=== PATIENT | female | born 1960 | race Caucasian/White ===

== ENCOUNTER 2024-03-22 10:32 | Emergency (ER) | payer MEDICARE ==
--- NOTE | 2024-03-22 10:38 | ERPHSYRPT ---
- History of Present Illness Time Seen by Provider: 03/22/24 10:38 Source: patient, family Exam Limitations: no limitations Physician History: This is a 63-year-old white female patient of Dr. Coe who arrives by private vehicle escorted by her spouse secondary to achiness in bilateral upper extremities right greater than left for the last few days intermittently. Last night to today the pain became more persistent and constant. Her symptoms began 03/20/2024. Patient did not tell the nurse who was triaging her that she actually has had episodes of chest pain. The chest pain was substernal central without radiation it was significant enough for her to consider coming to the emergency department last evening but she did not. Patient also states that it has been at least a week since she has been off of her supplemental potassium. Patient had to travel to see her daughter and the potassium upsets her stomach and so she stopped this medication. Patient has a history of Renee's esophagus and occasionally has chest pain but this pain that she describes in the last few days is different. Patient has a history of anxiety, depression, hypertension, hypothyroidism, hyperlipidemia and gastroesophageal reflux disease. Patient has not suffered any trauma fall or injury to her bilateral upper extremities Occurred: yesterday Quality: aching Severity of Pain-Max: moderate Severity of Pain-Current: moderate Extremities Pain Location: shoulder: bilateral, arm: bilateral Modifying Factors: Improves With: movement Associated Symptoms: chest discomfort (Mentally over the last 2 to 3 days) Allergies/Adverse Reactions: Penicillins Adverse Reaction (Verified 03/22/24 11:23) Hives Sulfa (Sulfonamide Antibiotics) Adverse Reaction (Verified 03/22/24 11:23) Hives Home Medications: ALPRAZolam 0.25 MG [xanAX 0.25 MG] 0.25 mg PO DAILY 03/22/24 [History] Atorvastatin Calcium 20 mg PO DAILY 03/22/24 [History] Hydrochlorothiazide 25 mg [hydroDIURIL 25 MG] 25 mg PO DAILY 03/22/24 [History] Levothyroxine Sodium 100 Mcg [Synthroid 100 Mcg] 100 mcg PO DAILY 03/22/24 [History] PANTOPRAZOLE 40 mg Tablet [Protonix 40MG Tablet] 40 mg PO DAILY 03/22/24 [History] Paroxetine HCl 20 mg [Paxil 20 MG] 10 mg PO DAILY 03/22/24 [History] Potassium Chloride 10 mg PO DAILY 03/22/24 [History] Sucralfate 1 gm [Carafate 1 GM] 1 g PO DAILY 03/22/24 [History] Verapamil HCl [Verapamil Sr] 180 mg PO DAILY 03/22/24 [History] Travel Risk - International Travel Have you traveled outside of the country in past 3 weeks: No - Emerging Infectious Disease Are you exhibiting symptoms associated with any current EIDs: No - Review of Systems Constitutional: No Symptoms Eyes: No Symptoms Ears, Nose, & Throat: No Symptoms Respiratory: No Symptoms Cardiac: Chest Pain Abdominal/Gastrointestinal: No Symptoms Genitourinary Symptoms: No Symptoms Musculoskeletal: No Symptoms, No Injury Skin: No Symptoms Neurological: No Symptoms Psychological: No Symptoms Endocrine: No Symptoms Hematologic/Lymphatic: No Symptoms Immunological/Allergic: No Symptoms All Other Systems: Reviewed and Negative - Past Medical History Pertinent Past Medical History: Yes - Past Surgical History Past Surgical History: Yes - Nursing Vital Signs Nursing Vital Signs: Initial Vital Signs Temperature 97.9 F 03/22/24 11:08 Pulse Rate 75 03/22/24 11:08 Respiratory Rate 18 03/22/24 11:08 Blood Pressure 159/107 03/22/24 11:08 O2 Sat by Pulse Oximetry 97 03/22/24 11:08 Pain Scale Pain Intensity 6 - Physical Exam General Appearance: no apparent distress, alert, anxiety, thin Eyes, Ears, Nose, Throat Exam: normal ENT inspection, moist mucous membranes Neck Exam: normal inspection, non-tender, supple, full range of motion Cardiovascular/Respiratory Exam: chest non-tender, normal breath sounds, regular rate/rhythm, heart sounds normal, no respiratory distress Abdominal Exam: non-tender, soft, no organomegaly, no hernia, No guarding, No tenderness Back Exam: normal inspection, normal range of motion, No CVA tenderness, No vertebral tenderness Shoulder Exam: normal inspection, non-tender, no evidence of injury, normal ROM Elbow/Forearm Exam: normal inspection, non-tender, no evidence of injury, normal ROM Wrist Exam: normal inspection, non-tender, no evidence of injury, normal ROM Hand Exam: normal inspection, non-tender, no evidence of injury, normal ROM Neuro/Tendon Exam: normal sensation, normal motor functions, normal tendon functions, no evidence tendon injury Mental Status Exam: alert, oriented x 3, cooperative Skin Exam: normal color, warm, dry SpO2 Interpretation: normal O2 Delivery: Room Air - Course Nursing assessment & vital signs reviewed: Yes EKG Interpreted by Me: RATE ([id number]), Sinus Rhythm, NORMAL AXIS, NORMAL INTERVALS, NORMAL QRS, NORMAL ST-T, Other (No acute ischemia. No comparison twelve-lead EKG. QTc is 497) Ordered Tests: Active Orders 24 hr Category Date Time Status Baseball Inspector STAT Care 03/22/24 12:04 Active EKG-ER Only STAT Care 03/22/24 12:03 Active IV Insertion STAT Care 03/22/24 12:03 Active Pulse Oximetry (ED) STAT Care 03/22/24 12:03 Active CBC W DIFF Stat Lab 03/22/24 12:27 Completed CMP Stat Lab 03/22/24 12:27 Completed D-DIMER QUANTITATIVE Stat Lab 03/22/24 12:27 Completed MAGNESIUM Stat Lab 03/22/24 12:27 Completed PROTIME WITH INR Stat Lab 03/22/24 12:27 Completed TROPONIN Q4H Lab 03/22/24 12:27 Completed TROPONIN Q4H Lab 03/22/24 16:15 Ordered TROPONIN Q4H Lab 03/22/24 20:15 Ordered Medication Summary Generic Name Dose Route Start Last Admin Trade Name Freq PRN Reason Stop Dose Admin Nitroglycerin/Dextrose 250 mls @ 1.5 mls/hr 03/22/24 13:55 Ntg 0.2mg/Ml In D5w Glass IV 04/21/24 13:54 .Q24H PRN CHEST PAIN Protocol 5 MCG/MIN Discontinued Medications Generic Name Dose Route Start Last Admin Trade Name Freq PRN Reason Stop Dose Admin Heparin Sodium (Beef Lung) 5,000 unit 03/22/24 13:33 Heparin 5000 Units/0.5 Ml 5,000 Unit/0.5 Ml Syr IV 03/22/24 13:34 STAT ONE Morphine Sulfate 2 mg 03/22/24 13:52 Morphine Sulfate 2 Mg/Ml Inj IV 03/22/24 13:53 STAT ONE Ondansetron HCl 4 mg 03/22/24 13:52 Ondansetron Hcl 4 Mg/2 Ml Vial IV 03/22/24 13:53 STAT ONE Lab/Rad Data: Laboratory Result Diagrams 03/22/24 12:27 03/22/24 12:27 Laboratory Results 03/22/24 03/22/24 03/22/24 Range/Units 12:27 12:27 12:27 WBC (3.98-10.04) x10^3/uL RBC (3.93-5.22) x10^6/uL Hgb (11.2-15.7) g/dL Hct (34.1-44.9) % MCV (79.4-94.8) fL MCH (25.6-32.2) pg MCHC (32.2-35.5) g/dL RDW (11.7-14.4) % Plt Count (182-369) x10^3/uL MPV (9.4-12.3) fL Gran % (34.0-71.1) % Immature Gran % (Auto) (0.001-0.429) % Nucleat RBC Rel Count (0.00-0.2) % Eos # (Auto) (0.04-0.36) x10^3/uL Immature Gran # (Auto) (0.001-0.031) x10^3u/L Absolute Lymphs (auto) (1.18-3.74) x10^3/uL Absolute Monos (auto) (0.24-0.86) x10^3/uL Absolute Nucleated RBC (0.00-0.012) x10^3u/L Lymphocytes % (19.3-51.7) % Monocytes % (4.7-12.5) % Eosinophils % (0.7-5.8) % Basophils % (0.1-1.2) % Absolute Granulocytes (1.56-6.13) x10^3/uL Basophils # (0.01-0.08) x10^3/uL PT 10.5 (9.4-12.5) SECONDS INR 0.96 (0.8-3.0) D-Dimer < 0.19 (0.0-0.50) mg/L Sodium 140 (135-145) mmol/L Potassium 3.6 (3.5-5.1) mmol/L Chloride 107 (98-107) mmol/L Carbon Dioxide 22 (22-30) mmol/L Anion Gap 15.8 H (5-15) MEQ/L BUN 13 (7-17) mg/dL Creatinine 0.61 (0.52-1.04) mg/dL Estimated GFR 99.8 ML/MIN Glucose 115 H (74-106) mg/dL Calcium 9.6 (8.4-10.2) mg/dL Magnesium 2.1 (1.6-2.3) mg/dL Total Bilirubin 0.70 (0.2-1.3) mg/dL AST 97 H (14-36) U/L ALT 43 H (0-35) U/L Alkaline Phosphatase 115 (38-126) U/L Troponin I 8.680 H* (0.000-0.033) ng/mL Serum Total Protein 7.7 (6.3-8.2) g/dL Albumin 4.7 (3.5-5.0) g/dL 03/22/24 Range/Units 12:27 WBC 8.3 (3.98-10.04) x10^3/uL RBC 4.33 (3.93-5.22) x10^6/uL Hgb 13.8 (11.2-15.7) g/dL Hct 40.1 (34.1-44.9) % MCV 92.6 (79.4-94.8) fL MCH 31.9 (25.6-32.2) pg MCHC 34.4 (32.2-35.5) g/dL RDW 12.3 (11.7-14.4) % Plt Count 232 (182-369) x10^3/uL MPV 10.7 (9.4-12.3) fL Gran % 73.2 H (34.0-71.1) % Immature Gran % (Auto) 0.4 (0.001-0.429) % Nucleat RBC Rel Count 0.0 (0.00-0.2) % Eos # (Auto) 0.16 (0.04-0.36) x10^3/uL Immature Gran # (Auto) 0.03 (0.001-0.031) x10^3u/L Absolute Lymphs (auto) 1.22 (1.18-3.74) x10^3/uL Absolute Monos (auto) 0.76 (0.24-0.86) x10^3/uL Absolute Nucleated RBC 0.00 (0.00-0.012) x10^3u/L Lymphocytes % 14.8 L (19.3-51.7) % Monocytes % 9.2 (4.7-12.5) % Eosinophils % 1.9 (0.7-5.8) % Basophils % 0.5 (0.1-1.2) % Absolute Granulocytes 6.05 (1.56-6.13) x10^3/uL Basophils # 0.04 (0.01-0.08) x10^3/uL PT (9.4-12.5) SECONDS INR (0.8-3.0) D-Dimer (0.0-0.50) mg/L Sodium (135-145) mmol/L Potassium (3.5-5.1) mmol/L Chloride (98-107) mmol/L Carbon Dioxide (22-30) mmol/L Anion Gap (5-15) MEQ/L BUN (7-17) mg/dL Creatinine (0.52-1.04) mg/dL Estimated GFR ML/MIN Glucose (74-106) mg/dL Calcium (8.4-10.2) mg/dL Magnesium (1.6-2.3) mg/dL Total Bilirubin (0.2-1.3) mg/dL AST (14-36) U/L ALT (0-35) U/L Alkaline Phosphatase (38-126) U/L Troponin I (0.000-0.033) ng/mL Serum Total Protein (6.3-8.2) g/dL Albumin (3.5-5.0) g/dL - Progress Progress: improved, re-examined Progress Note: 03/22/24 12:14 My medical decision making and the assignment of moderate complexity to this patient's medical issue today is based on review of the patient's past medical history, review of the patient's medication list, reviewed patient drug allergy list, history present illness and physical findings on examination. The workup in this patient includes twelve-lead EKG, CBC, CMP, D-dimer level, magnesium level. Differential diagnosis includes but is not limited to myocardial infarction, pulmonary embolus, electrolyte abnormalities, arrhythmia 03/22/24 13:59 I interpreted the patient's laboratory data results. Patient has a significantl y elevated troponin level at 8.68. Although I do not necessarily see an acute, STEMI on the first twelve-lead EKG, I repeated the second twelve-lead EKG on 03/22/2024 at 1349. The heart rate is 78. It is normal sinus rhythm. The QTc is 417. In reviewing and comparing both twelve-lead EKGs. There may be a slight elevation in lead V2 but it does not appear to be changed from the initial twelve-lead EKG V2 lead finding. I did start nitroglycerin drip, provide the patient with 5000 units intravenous heparin as well as 2 mg of intravenous morphine and 4 mg of intravenous Zofran. I spoke with Fouzia at the [facility]. Dr. Martinez is the emergency physician who has accepted this patient in transfer. At this moment in time, I am not convinced we need to call a STEMI alert. The patient has received the above medication coverage. Counseled pt/family regarding: lab results, diagnosis, need for follow-up Medical Desision Making - Independent Historian Additional History obtained from: Spouse - Diagnostic Testing Diagnostic test were ordered, analyzed, and reviewed by me: Yes Radiological Interpretation: Reviewed by me, Teleradiologist Report - Risk of complications The pt has a high risk of morbidity or mortality based on: Decision regarding hospitilization or escalation of hosp level of care - Departure Departure Disposition: Transfer Clinical Impression: Chest pain, Non-STEMI (non-ST elevated myocardial infarction), Elevated troponin Condition: Stable Critical Care Time: Yes Critical Care Time(excluding separately billable procedures): Critical 30-74 mins (50 minutes) Referrals: KULDEEP COE MD [Primary Care Provider] - Follow up/PCP as directed
[2024-03-22 11:23] VITALS: TEMP 97.9
[2024-03-22 12:33] LABS: Absolute Neutrophil Ct (ANC) 6.05 x10^3/uL (1.56-6.13); BASOPHIL % 0.5 % (0.1-1.2); Basophil (Absolute #) 0.04 x10^3/uL (0.01-0.08); Eosinophil % 1.9 % (0.7-5.8); Eosinophil (Absolute #) 0.16 x10^3/uL (0.04-0.36); Hematocrit 40.1 % (34.1-44.9); Hemoglobin 13.8 g/dL (11.2-15.7); IMMATURE GRAN # 0.03 x10^3u/L (0.001-0.031); IMMATURE GRAN % 0.4 % (0.001-0.429); Lymphocyte (Absolute #) 1.22 x10^3/uL (1.18-3.74); Lymphocytes % 14.8 % (19.3-51.7); Mean Cell Volume 92.6 fL (79.4-94.8); Mean Corpuscular Hemoglobin 31.9 pg (25.6-32.2); Mean Corpuscular Hgb Concent. 34.4 g/dL (32.2-35.5); Mean Platelet Volume 10.7 fL (9.4-12.3); Monocyte (Absolute #) 0.76 x10^3/uL (0.24-0.86); Monocytes % 9.2 % (4.7-12.5); Neutrophil % 73.2 % (34.0-71.1); Platelet Count 232 x10^3/uL (182-369); Red Blood Count 4.33 x10^6/uL (3.93-5.22); Red Cell Distribution Width 12.3 % (11.7-14.4); White Blood Count 8.3 x10^3/uL (3.98-10.04)
[2024-03-22 12:49] LABS: ALBUMIN 4.7 g/dL (3.5-5.0); ANION GAP 15.8 MEQ/L (5-15); BILIRUBIN,TOTAL 0.7 mg/dL (0.2-1.3); Calcium 9.6 mg/dL (8.4-10.2); Creatinine 1 0.61 mg/dL (0.52-1.04); EST GLOMERULAR FILTRATION RATE 99.8 ML/MIN; MAGNESIUM 2.1 mg/dL (1.6-2.3); Potassium 3.6 mmol/L (3.5-5.1); Total Protein 7.7 g/dL (6.3-8.2)
[2024-03-22 13:09] LABS: D-DIMER QUANTITATIVE < 0.19 mg/L (0.0-0.50); INR 0.96 (0.8-3.0); PROTIME 10.5 SECONDS (9.4-12.5)
[2024-03-22] MEDS ORDERED: HEPARIN 5000 UNITS/0.5 ML (HIGH RISK MED) ONE (14:04)
[2024-03-22] MEDS ORDERED: MORPHINE SULFATE 2 MG INJ ONE (14:04)
[2024-03-22] MEDS ORDERED: Zofran 4 MG/2 ML VIAL ONE (14:04)
[2024-03-22] MEDS ORDERED: Heparin 25,000 units/D5W: USE ORDER SET PROTO 25,000 UNITS/250 ML BAG IV ONE (14:05)
[2024-03-22] MEDS ORDERED: Ntg 0.2MG/Ml in D5W GLASS*** 250 ML IV ONE (14:05)
[2024-03-22] MEDS: Zofran 4 MG/2 ML VIAL IV ONE (14:10)
[2024-03-22] MEDS: MORPHINE SULFATE 2 MG INJ IV ONE (14:11)
[2024-03-22] MEDS: HEPARIN 5000 UNITS/0.5 ML (HIGH RISK MED) IV ONE (14:15)
[2024-03-22] MEDS: Ntg 0.2MG/Ml in D5W GLASS*** 250 ML IV PRN (14:16)
[2024-03-22 14:22] VITALS: BP 149/90; PULSE 78; RESP 15; O2SAT 94
[2024-03-22] MEDS: Heparin 25,000 units/D5W: USE ORDER SET PROTO 25,000 UNITS/250 ML BAG IV SCH (14:23)
== END 2024-03-22 15:12 | disposition short-term general hospital (02) ==
LOC: ED 10:32
DX: I21.4 Non-ST elevation (NSTEMI) myocardial infarction (principal); R07.9 Chest pain, unspecified; R77.8 Other specified abnormalities of plasma proteins; M79.601 Pain in right arm; M79.602 Pain in left arm; I10 Essential (primary) hypertension; E78.5 Hyperlipidemia, unspecified; Z79.899 Other long term (current) drug therapy
CPT/HCPCS: 36000; 36415; 80053; 83735; 84484; 85025; 85379; 85610; 85730; 93005; 93041; 94760; 96374; 96375; 99284; 99291; J1644; J2270; J2405

== ENCOUNTER 2024-04-26 11:31 | Observation (INO) | payer MEDICARE ==
[2024-04-26 12:10] LABS: Absolute Neutrophil Ct (ANC) 1.94 x10^3/uL (1.56-6.13); BASOPHIL % 0.6 % (0.1-1.2); Basophil (Absolute #) 0.02 x10^3/uL (0.01-0.08); Eosinophil % 2.5 % (0.7-5.8); Eosinophil (Absolute #) 0.09 x10^3/uL (0.04-0.36); Hematocrit 39.2 % (34.1-44.9); Hemoglobin 13.1 g/dL (11.2-15.7); Lymphocyte (Absolute #) 1.02 x10^3/uL (1.18-3.74); Lymphocytes % 28.9 % (19.3-51.7); Mean Corpuscular Hemoglobin 31.4 pg (25.6-32.2); Mean Corpuscular Hgb Concent. 33.4 g/dL (32.2-35.5); Mean Platelet Volume 11.5 fL (9.4-12.3); Monocyte (Absolute #) 0.46 x10^3/uL (0.24-0.86); Platelet Count 197 x10^3/uL (182-369); Red Blood Count 4.17 x10^6/uL (3.93-5.22); Red Cell Distribution Width 12.6 % (11.7-14.4); White Blood Count 3.5 x10^3/uL (3.98-10.04)
--- NOTE | 2024-04-26 12:25 | ERPHSYRPT ---
- History of Present Illness Time Seen by Provider: 04/26/24 11:36 Historian: patient Exam Limitations: no limitations Patient Subjective Stated Complaint: Afib Triage Nursing Assessment: 64 yr old female pt arrives to ED via wheelchair from cardiac rehab. Pt reports that she was feeling some pain and palpitations last night but decided to hold off on coming to the ER. Pt was hooked up to the gambling monitor and RN noticed that pt was in Afib. Pt was here last month for a NSTEMI. Pt repots that her pain is a 2 out of 10. Pt denies palpitations at this time but she does feel weak. Pt is alert, oriented and not in distress. Physician History: 64-year-old female with history of recent NSTEMI with stenting, hypertension, hyperlipidemia, anxiety, hypothyroidism is brought in the ER from cardiac rehab here at the hospital after it was found patient was in A-fib new onset. Patient reports she was having some palpitations last night where she was feeling as if her heart is racing fast. Denies any chest pain but minimal discomfort at times. Denies any dyspnea other than what she has at her baseline. Patient denies any fever or chills. No numbness tingling or focal weakness etc. Aspirin Treatment Today: 81 mg x 1 Allergies/Adverse Reactions: Penicillins Adverse Reaction (Verified 04/26/24 11:32) Hives Sulfa (Sulfonamide Antibiotics) Adverse Reaction (Verified 04/26/24 11:32) Hives Home Medications: ALPRAZolam 0.25 MG [xanAX 0.25 MG] 0.25 mg PO HS 03/22/24 [History] Atorvastatin Calcium 40 mg PO DAILY 03/22/24 [History] Levothyroxine Sodium 100 Mcg [Synthroid 100 Mcg] 100 mcg PO DAILY 03/22/24 [History] PANTOPRAZOLE 40 mg Tablet [Protonix 40MG Tablet] 40 mg PO DAILY 03/22/24 [History] Paroxetine HCl 20 mg [Paxil 20 MG] 10 mg PO DAILY 03/22/24 [History] Potassium Chloride 10 meq PO DAILY 03/22/24 [History] Sucralfate 1 gm [Carafate 1 GM] 1 g PO DAILY 03/22/24 [History] Aspirin [Adult Aspirin Regimen] 81 mg PO DAILY 04/26/24 [History] Lisinopril 5 mg [Zestril 5 MG] 2.5 mg PO DAILY 04/26/24 [History] Metoprolol Tartrate 25 mg [Lopressor 25MG Tab] 12.5 mg PO BID 04/26/24 [History] Ticagrelor [Brilinta] 90 mg PO BID 04/26/24 [History] Hx Tetanus, Diphtheria Vaccination/Date Given: Yes Hx Influenza Vaccination/Date Given: No Hx Pneumococcal Vaccination/Date Given: No Immunizations Up to Date: No Travel Risk - International Travel Have you traveled outside of the country in past 3 weeks: No - Emerging Infectious Disease Are you exhibiting symptoms associated with any current EIDs: No - Review of Systems Constitutional: Fatigue Eyes: No Symptoms Ears, Nose, & Throat: No Symptoms Respiratory: Dyspnea Cardiac: Chest Pain, Palpitations Abdominal/Gastrointestinal: No Symptoms Genitourinary Symptoms: No Symptoms Musculoskeletal: No Symptoms Skin: No Symptoms Neurological: No Symptoms Psychological: Anxiety Endocrine: No Symptoms Hematologic/Lymphatic: No Symptoms Immunological/Allergic: No Symptoms - Past Medical History Pertinent Past Medical History: Yes Neurological History: No Pertinent History ENT History: No Pertinent History Cardiac History: High Cholesterol, Hypertension, Other Respiratory History: No Pertinent History Endocrine Medical History: Hypothyroidism Musculoskeletal History: No Pertinent History GI Medical History: Irritable Bowel, Other History: No Pertinent History Psycho-Social History: Anxiety Female Reproductive Disorders: No Pertinent History Other Medical History: barretts esophagus, NSTEMI - Past Surgical History Past Surgical History: Yes Neuro Surgical History: No Pertinent History Cardiac: Cardiac Catheterization, Cardiac Stent Respiratory: No Pertinent History Gastrointestinal: Other Genitourinary: No Pertinent History Musculoskeletal: No Pertinent History Female Surgical History: No Pertinent History Other Surgical History: cystocele, rectocele, colonoscopy, stent placed in03/23/24 - Social History Smoking Status: Never smoker Exposure to second hand smoke: No Drug Use: none - Social Determinants of Health Will the patient participate in the screening: Yes Do you worry about a steady place to live?: No Do you have any problems with any of the following?: No known problems In the past 12 months,have you had to go without utilities?: No Transportation Issues: No Has anyone in your support network made you feel unsafe?: No Have you or anyone in your house had to go without enough: No - Nursing Vital Signs Nursing Vital Signs: Initial Vital Signs Temperature 96.7 F 04/26/24 11:32 Pulse Rate 96 H 04/26/24 11:32 Respiratory Rate 16 04/26/24 11:32 Blood Pressure 137/90 04/26/24 11:32 O2 Sat by Pulse Oximetry 98 04/26/24 11:32 Pain Scale Pain Intensity 2 - Physical Exam General Appearance: no apparent distress, alert Eye Exam: PERRL/EOMI Ears, Nose, Throat Exam: normal ENT inspection Neck Exam: normal inspection, non-tender, supple, full range of motion Respiratory Exam: normal breath sounds, lungs clear Cardiovascular Exam: normal heart sounds, irregular Gastrointestinal/Abdomen Exam: soft, No tenderness Extremity Exam: normal inspection, normal range of motion Neurologic Exam: alert, oriented x 3, cooperative, dam operator II-XII nml as tested, sensation nml, No motor deficits Skin Exam: normal color SpO2 Interpretation: normal SpO2: 98 O2 Delivery: Room Air - Course EKG Interpreted by Me: RATE (94), A-fib, NORMAL AXIS, NORMAL INTERVALS, NORMAL QRS, Other (T wave inversion anterolateral leads) Ordered Tests: Active Orders 24 hr Category Date Time Status CHEST 1 VIEW (PORTABLE) Stat Exams 04/26/24 11:56 Completed ECHO W/2D AND DOPPLER [US] Stat Exams 04/26/24 14:55 Taken CBC W DIFF Stat Lab 04/26/24 11:56 Completed CMP Stat Lab 04/26/24 12:00 Completed MAGNESIUM Stat Lab 04/26/24 12:00 Completed NT PRO BNPII Stat Lab 04/26/24 12:00 Completed TROPONIN Q4H Lab 04/26/24 12:00 Completed TROPONIN Q4H Lab 04/26/24 16:00 Ordered TROPONIN Q4H Lab 04/26/24 20:00 Ordered TSH, 3RD Generation Stat Lab 04/26/24 12:00 Completed Transfer Order Routine Transfer 04/26/24 Ordered Lab/Rad Data: Laboratory Result Diagrams 04/26/24 11:56 04/26/24 12:00 Laboratory Results 04/26/24 04/26/24 04/26/24 Range/Units 12:00 12:00 11:56 WBC 3.5 L (3.98-10.04) x10^3/uL RBC 4.17 (3.93-5.22) x10^6/uL Hgb 13.1 (11.2-15.7) g/dL Hct 39.2 (34.1-44.9) % MCV 94.0 (79.4-94.8) fL MCH 31.4 (25.6-32.2) pg MCHC 33.4 (32.2-35.5) g/dL RDW 12.6 (11.7-14.4) % Plt Count 197 (182-369) x10^3/uL MPV 11.5 (9.4-12.3) fL Gran % 55.0 (34.0-71.1) % Immature Gran % (Auto) 0.0 L (0.001-0.429) % Nucleat RBC Rel Count 0.0 (0.00-0.2) % Eos # (Auto) 0.09 (0.04-0.36) x10^3/uL Immature Gran # (Auto) 0.00 L (0.001-0.031) x10^3u/L Absolute Lymphs (auto) 1.02 L (1.18-3.74) x10^3/uL Absolute Monos (auto) 0.46 (0.24-0.86) x10^3/uL Absolute Nucleated RBC 0.00 (0.00-0.012) x10^3u/L Lymphocytes % 28.9 (19.3-51.7) % Monocytes % 13.0 H (4.7-12.5) % Eosinophils % 2.5 (0.7-5.8) % Basophils % 0.6 (0.1-1.2) % Absolute Granulocytes 1.94 (1.56-6.13) x10^3/uL Basophils # 0.02 (0.01-0.08) x10^3/uL Sodium 142 (135-145) mmol/L Potassium 4.6 (3.5-5.1) mmol/L Chloride 109 H (98-107) mmol/L Carbon Dioxide 21 L (22-30) mmol/L Anion Gap 16.5 H (5-15) MEQ/L BUN 12 (7-17) mg/dL Creatinine 0.77 (0.52-1.04) mg/dL Estimated GFR 85.6 ML/MIN Glucose 104 (74-106) mg/dL Calcium 9.9 (8.4-10.2) mg/dL Magnesium 2.1 (1.6-2.3) mg/dL Total Bilirubin 1.00 (0.2-1.3) mg/dL AST 29 (14-36) U/L ALT 32 (0-35) U/L Alkaline Phosphatase 121 (38-126) U/L Troponin I < 0.012 (0.000-0.033) ng/mL NT-Pro-B Natriuret Pep 3170 (<300) pg/mL Serum Total Protein 7.3 (6.3-8.2) g/dL Albumin 4.8 (3.5-5.0) g/dL TSH 3rd Generation 0.055 L (0.470-4.680) mIU/L - Progress Progress: improved Air Movement: good Progress Note: 04/26/24 14:11 64-year-old is evaluated in the ER for palpitations and left-sided chest discomfort. Patient is in A-fib rate controlled. Patient has no history of at rial fibrillation and it is new onset. She is not anticoagulated. Workup showed normal white count, fairly unremarkable chemistries, low TSH, chest x-ray negative. Discussed with Dr. Fairchild, reviewed history, workup and agreed with observation admission. Shared the results of workup and plan of admission with patient which she understands and agrees. Blood Culture(s) Obtained: No Antibiotics given: No Discussed with Dr.: Other (Dr. Fairchild hospitalist) Will see patient in: hospital (observation) Counseled pt/family regarding: lab results, diagnosis, rad results Medical Desision Making - Discussion of managment Care discussed with:: hospitalist Reviewed:: Test results Agreed on:: Treatment plan, place in obs Will see patient: in hospital - Diagnostic Testing Diagnostic test were ordered, analyzed, and reviewed by me: Yes Radiological Interpretation: Reviewed by me - Risk of complications The pt has a mod risk of morbidity or mortality based on: Need for prescription drug management The pt has a high risk of morbidity or mortality based on: Decision regarding hospitilization or escalation of hosp level of care - Departure Departure Disposition: Observation Clinical Impression: New onset atrial fibrillation Condition: Stable Critical Care Time: No
[2024-04-26 13:00] LABS: ALBUMIN 4.8 g/dL (3.5-5.0); ANION GAP 16.5 MEQ/L (5-15); Calcium 9.9 mg/dL (8.4-10.2); Creatinine 1 0.77 mg/dL (0.52-1.04); EST GLOMERULAR FILTRATION RATE 85.6 ML/MIN; MAGNESIUM 2.1 mg/dL (1.6-2.3); Potassium 4.6 mmol/L (3.5-5.1); TSH, 3RD Generation 0.055 mIU/L (0.470-4.680); Total Protein 7.3 g/dL (6.3-8.2)
--- NOTE | 2024-04-26 13:09 | XRAY ---
Indication: Palpitations. Comparison: None Portable chest demonstrates minimal left base subsegmental atelectasis/scarring. Remaining heart, lungs, and bony thorax normal.
--- NOTE | 2024-04-26 16:10 | PCM.HP ---
History of Present Illness - Chief Complaint Chief Complaint: chest pressure/afib Date: 04/26/24 History of Present Illness: is a 64 year old female with a pmxh of HTN, HLD, anxiety, hypothyroidism,Renee's esophagus, IBS, and recent AL 03/22/24 with stenting (Cardio rehab x 2.5 weeks)patient of Dr. Bingham (Cardiology) presented to ED with complaints of left-sided chest pressure. Patient states that yesterday she generally was not feeling well with chest pressure and "heart racing" sensation. The "heart racing" sensation has since resolved. She endorses she was feeling better this morning other than some mild chest pressure. When hooked up to the EKG machine by cardio rehab she was noted to be in AFIB and sent to ED. She describes the pain as sharp/pressure-like, non-radiating with no associated symptoms. No relieving/aggravating factors. She states she has been short of breath since being placed on Brilinta. She reports symptoms are not similar to her prior AL. Upon arrival to ED, vitals stable. EKG interpreted by ED physician reported as R ATE (94), A-fib, NORMAL AXIS, NORMAL INTERVALS, NORMAL QRS, Other (T wave inversion anterolateral leads). CXR with no acute cardiopulmonary processes. Labs remarkable for leukopenia with WBC at 3.5, Co2 at 21, GAP 16.5, BNP 3170, and TSH at 0.055. Patient being admitted for new onset AFIB. - Review of Systems Constitutional: No Symptoms Eyes: No Symptoms Ears, Nose, & Throat: No Symptoms Respiratory: Short Of Breath Cardiac: Chest Pain Abdominal/Gastrointestinal: No Symptoms Genitourinary Symptoms: No Symptoms Musculoskeletal: No Symptoms Skin: No Symptoms Neurological: No Symptoms Psychological: No Symptoms Endocrine: No Symptoms Hematologic/Lymphatic: No Symptoms Immunological/Allergic: No Symptoms Medications & Allergies Home Medications: Home Medication List ALPRAZolam 0.25 MG [xanAX 0.25 MG] 0.25 mg PO HS 03/22/24 [History Confirmed 04/26/24] Atorvastatin Calcium 40 mg PO DAILY 03/22/24 [History Confirmed 04/26/24] Levothyroxine Sodium 100 Mcg [Synthroid 100 Mcg] 100 mcg PO DAILY 03/22/24 [History Confirmed 04/26/24] PANTOPRAZOLE 40 mg Tablet [Protonix 40MG Tablet] 40 mg PO DAILY 03/22/24 [History Confirmed 04/26/24] Paroxetine HCl 20 mg [Paxil 20 MG] 10 mg PO DAILY 03/22/24 [History Confirmed 04/26/24] Potassium Chloride 10 meq PO DAILY 03/22/24 [History Confirmed 04/26/24] Sucralfate 1 gm [Carafate 1 GM] 1 g PO DAILY 03/22/24 [History Confirmed 04/26/24] Aspirin [Adult Aspirin Regimen] 81 mg PO DAILY 04/26/24 [History Confirmed 04/26/24] Lisinopril 5 mg [Zestril 5 MG] 2.5 mg PO DAILY 04/26/24 [History Confirmed 04/26/24] Metoprolol Tartrate 25 mg [Lopressor 25MG Tab] 12.5 mg PO BID 04/26/24 [History Confirmed 04/26/24] Ticagrelor [Brilinta] 90 mg PO BID 04/26/24 [History Confirmed 04/26/24] Allergies/Adverse Reactions: Allergies Allergy/AdvReac Type Severity Reaction Status Date / Time Penicillins AdvReac Hives Verified 04/26/24 16:13 Sulfa (Sulfonamide AdvReac Hives Verified 04/26/24 16:13 Antibiotics) - Past Medical History Past Medical History: Yes Neurological History: No Pertinent History ENT History: No Pertinent History Cardiac History: High Cholesterol, Hypertension, Other Respiratory History: No Pertinent History Endocrine Medical History: Hypothyroidism Musculoskelatal History: No Pertinent History GI Medical History: Irritable Bowel, Other History: No Pertinent History Pyscho-Social History: Anxiety Reproductive Disorders: No Pertinent History Comment: barretts esophagus, NSTEMI - Past Surgical History Past Surgical History: Yes Neuro Surgical History: No Pertinent History Cardiac History: Cardiac Catheterization, Cardiac Stent Respiratory Surgery: No Pertinent History GI Surgical History: Other Genitourinary Surgical Hx: No Pertinent History Musculskeletal Surgical Hx: No Pertinent History Female Surgical History: No Pertinent History Other Surgical History: cystocele, rectocele, colonoscopy, stent placed in03/23/24 Significant Family History: heart disease (maternal/paternal ) - Social History Smoking Status: Never smoker Exposure to second hand smoke: No Alcohol: None Drug Use: none - Social Determinants of Health Will the patient participate in the screening: Yes Do you worry about a steady place to live?: No Do you have any problems with any of the following?: No known problems In the past 12 months,have you had to go without utilities?: No Have you or anyone in your house had to go without enough: No Transportation Issues: No Has anyone in your support network made you feel unsafe?: No - Physical Exam Vital Signs: Vital Signs - 24 hr Temp Pulse Resp BP Pulse Ox 04/26/24 15:54 98 04/26/24 11:32 96.7 F 96 H 16 137/90 98 General Appearance: no apparent distress Neurologic Exam: alert, oriented x 3, cooperative Eye Exam: PERRL/EOMI Ears, Nose, Throat Exam: normal ENT inspection Neck Exam: normal inspection Respiratory Exam: normal breath sounds Cardiovascular Exam: irregular Pelvic Exam: not done Rectal Exam: deferred Back Exam: normal inspection Extremity Exam: normal inspection Skin Exam: normal color Results - Labs Lab/Micro Results: Lab Results-Last 24 Hours 04/26/24 04/26/24 04/26/24 Range/Units 11:56 12:00 12:00 WBC 3.5 L (3.98-10.04) x10^3/uL RBC 4.17 (3.93-5.22) x10^6/uL Hgb 13.1 (11.2-15.7) g/dL Hct 39.2 (34.1-44.9) % MCV 94.0 (79.4-94.8) fL MCH 31.4 (25.6-32.2) pg MCHC 33.4 (32.2-35.5) g/dL RDW 12.6 (11.7-14.4) % Plt Count 197 (182-369) x10^3/uL MPV 11.5 (9.4-12.3) fL Gran % 55.0 (34.0-71.1) % Immature Gran % (Auto) 0.0 L (0.001-0.429) % Nucleat RBC Rel Count 0.0 (0.00-0.2) % Eos # (Auto) 0.09 (0.04-0.36) x10^3/uL Immature Gran # (Auto) 0.00 L (0.001-0.031) x10^3u/L Absolute Lymphs (auto) 1.02 L (1.18-3.74) x10^3/uL Absolute Monos (auto) 0.46 (0.24-0.86) x10^3/uL Absolute Nucleated RBC 0.00 (0.00-0.012) x10^3u/L Lymphocytes % 28.9 (19.3-51.7) % Monocytes % 13.0 H (4.7-12.5) % Eosinophils % 2.5 (0.7-5.8) % Basophils % 0.6 (0.1-1.2) % Absolute Granulocytes 1.94 (1.56-6.13) x10^3/uL Basophils # 0.02 (0.01-0.08) x10^3/uL Sodium 142 (135-145) mmol/L Potassium 4.6 (3.5-5.1) mmol/L Chloride 109 H (98-107) mmol/L Carbon Dioxide 21 L (22-30) mmol/L Anion Gap 16.5 H (5-15) MEQ/L BUN 12 (7-17) mg/dL Creatinine 0.77 (0.52-1.04) mg/dL Estimated GFR 85.6 ML/MIN Glucose 104 (74-106) mg/dL Calcium 9.9 (8.4-10.2) mg/dL Magnesium 2.1 (1.6-2.3) mg/dL Total Bilirubin 1.00 (0.2-1.3) mg/dL AST 29 (14-36) U/L ALT 32 (0-35) U/L Alkaline Phosphatase 121 (38-126) U/L Troponin I < 0.012 (0.000-0.033) ng/mL NT-Pro-B Natriuret Pep 3170 (<300) pg/mL Serum Total Protein 7.3 (6.3-8.2) g/dL Albumin 4.8 (3.5-5.0) g/dL TSH 3rd Generation 0.055 L (0.470-4.680) mIU/L - Radiology Impressions Radiology Exams & Impressions: Radiology Procedures Category Date Time Status CHEST 1 VIEW (PORTABLE) Stat Exams 04/26/24 11:56 Completed ECHO W/2D AND DOPPLER [US] Stat Exams 04/26/24 14:55 Taken - Other Procedures and Tests Respiratory Therapy 04/26/24 15:54 Respiratory Therapy Consult ONCE Assessment/Plan (1) New onset atrial fibrillation Current Visit: Yes Status: Acute Assessment & Plan: -Ekg interpreted by ED physician reported as RATE (94), A-fib, NORMAL AXIS, NORMAL INTERVALS, NORMAL QRS, Other (T wave inversion anterolateral leads) -TSH level reviewed and low, consider dose reduce levothyroxine after repeat TSH level in the morning -Cardiology consult, appreciate recs -trops x 1 wnl - trend -ddimer -increase metoprolol tartrate to 25mg bid -echo obtained and pending cardiology read -MG/Potas reviewed and WNL - optimize electrolytes -trend -tele -Repeat EKG in the a.m. Code(s): I48.91 - UNSPECIFIED ATRIAL FIBRILLATION (2) Chest pain Current Visit: No Status: Acute Assessment & Plan: -EKG as stated above - see plan for AFIB -Echo pending -Cardiology consulted -trops WNL x 1 - trend -repeat EKG in the a.m. Code(s): R07.9 - CHEST PAIN, UNSPECIFIED (3) HTN (hypertension) Current Visit: Yes Status: Acute Assessment & Plan: -stable continue home meds Code(s): I10 - ESSENTIAL (PRIMARY) HYPERTENSION (4) CAD (coronary artery disease) Current Visit: Yes Status: Acute Assessment & Plan: -AL with recent stent 03/22/24 -Follows with Dr. Bingham cardiology -Cardiorehab -- x 2.5 weeks -continue home meds Code(s): I25.10 - ATHSCL HEART DISEASE OF CAD[place] CORONARY ARTERY W/O ANG PCTRS (5) Hypothyroid Current Visit: Yes Status: Acute Assessment & Plan: -TSH level low - will repeat in the setting of AFib prior to dose adjustment Code(s): E03.9 - HYPOTHYROIDISM, UNSPECIFIED (6) Anxiety Current Visit: Yes Status: Acute Assessment & Plan: -continue home meds VTE: lovenox Dispo: 1-2 days Code status: full Code(s): F41.9 - ANXIETY DISORDER, UNSPECIFIED Telemedicine Encounter - Telemedicine Encounter Telemedicine Encounter: "The entirety of this encounter was performed via Telemedicine" This visit was performed using real-time audio and video connection between my location and thepatients locationwith the assistance of a surrogateat the patients location. Written or verbal consent was obtained from the patient/guardian to perform this visit usingsynchronoustelemedicine technology. Any patient questions regarding the telemedicine interaction were answered.
[2024-04-26] MEDS ORDERED: Zofran 4 MG/2 ML VIAL IV PRN (16:30)
[2024-04-26] MEDS ORDERED: TYLENOL 325 MG PO PRN (16:30)
[2024-04-26 16:52] VITALS: O2SAT 97
[2024-04-26] MEDS: Lopressor 25MG Tab PO ONE (17:39)
[2024-04-26] MEDS ORDERED: ENOXAPARIN SODIUM SQ ONE (17:47)
[2024-04-26] MEDS: ENOXAPARIN SODIUM SQ SCH (17:49)
--- NOTE | 2024-04-26 18:10 | PCM.CONS ---
History of Present Illness - Date of Consult Date of Encounter: 04/26/24 Consulting Modeling Director: RADHA LARSEN MD Requesting Provider: Attending Provider: SOFÍA DAVID MD Primary Care Provider: PCP: KULDEEP COE Consent was: Given for this tele-med encounter - Consult Narrative Reason for Consult: afib HPI: Patient is a 64F w/ PMHx of HTN, HL, IBS, hypothyroidism, and CAD s/p recent NSTEMI with AYAN placement who presents from cardiac rehab with newly diagnosed afib. The patient denies ever having this diagnosis previously. She reported feeling palpitations and some fatigue yesterday. Today, she's had no palpitations but did reports some nonspecific sharp chest pain as well as fatigue. Currently, she feels much better. cc:: The requesting physician will be sent a copy of the consult. Review of Systems - Review of Systems All systems: as per HPI - Past Medical History Past Medical History: Yes Neurological History: No Pertinent History ENT History: No Pertinent History Cardiac History: High Cholesterol, Hypertension, Other Respiratory History: No Pertinent History Endocrine Medical History: Hypothyroidism Musculoskelatal History: No Pertinent History GI Medical History: Irritable Bowel, Other History: No Pertinent History Pyscho-Social History: Anxiety Reproductive Disorders: No Pertinent History Comment: barretts esophagus, NSTEMI - Past Surgical History Past Surgical History: Yes Neuro Surgical History: No Pertinent History Cardiac History: Cardiac Catheterization, Cardiac Stent Respiratory Surgery: No Pertinent History GI Surgical History: Other Genitourinary Surgical Hx: No Pertinent History Musculskeletal Surgical Hx: No Pertinent History Female Surgical History: No Pertinent History Other Surgical History: cystocele, rectocele, colonoscopy, stent placed in03/23/24 Significant Family History: heart disease (maternal/paternal ) - Social History Smoking Status: Never smoker Exposure to second hand smoke: No Alcohol: None Drug Use: none - Social Determinants of Health Will the patient participate in the screening: Yes Do you worry about a steady place to live?: No Do you have any problems with any of the following?: No known problems In the past 12 months,have you had to go without utilities?: No Have you or anyone in your house had to go without enough: No Transportation Issues: No Has anyone in your support network made you feel unsafe?: No Does the patient want assistance with any of the above?: No Medications & Allergies Home Medications: Home Medication List ALPRAZolam 0.25 MG [xanAX 0.25 MG] 0.25 mg PO HS 03/22/24 [History Confirmed 04/26/24] Atorvastatin Calcium 40 mg PO HS 03/22/24 [History Confirmed 04/26/24] Levothyroxine Sodium 100 Mcg [Synthroid 100 Mcg] 100 mcg PO DAILY 03/22/24 [History Confirmed 04/26/24] PANTOPRAZOLE 40 mg Tablet [Protonix 40MG Tablet] 40 mg PO DAILY 03/22/24 [History Confirmed 04/26/24] Paroxetine HCl 20 mg [Paxil 20 MG] 10 mg PO DAILY 03/22/24 [History Confirmed 04/26/24] Potassium Chloride 10 meq PO DAILY 03/22/24 [History Confirmed 04/26/24] Sucralfate 1 gm [Carafate 1 GM] 1 g PO DAILY 03/22/24 [History Confirmed 04/26/24] Aspirin [Adult Aspirin Regimen] 81 mg PO DAILY 04/26/24 [History Confirmed 04/26/24] Lisinopril 5 mg [Zestril 5 MG] 2.5 mg PO DAILY 04/26/24 [History Confirmed 04/26/24] Metoprolol Tartrate 25 mg [Lopressor 25MG Tab] 12.5 mg PO BID 04/26/24 [History Confirmed 04/26/24] Ticagrelor [Brilinta] 90 mg PO BID 04/26/24 [History Confirmed 04/26/24] Allergies/Adverse Reactions: Allergies Allergy/AdvReac Type Severity Reaction Status Date / Time Penicillins AdvReac Hives Verified 04/26/24 16:13 Sulfa (Sulfonamide AdvReac Hives Verified 04/26/24 16:13 Antibiotics) Exam - Vitals Vital Signs: Vital Signs - 24 hr Temp Pulse Resp BP Pulse Ox 04/26/24 16:30 97.2 F 66 140/95 97 04/26/24 15:54 98 04/26/24 15:54 68 16 97 04/26/24 11:32 96.7 F 96 H 16 137/90 98 General:: alert and oriented x 4, no acute distress HEENT: EOMI, anicteric sclera, mm moist and pink Cardiovascular Exam: normal heart sounds, other (irreg irreg) Respiratory Exam: normal breath sounds SpO2: 97 Gastrointestinal/Abdomen Exam: soft, normal bowel sounds Skin Exam: normal color Extremity Exam: normal inspection, other (no significant edema) Neurologic: style advisor II-XII grossly intact, appropriate affect, normal mood/affect Results Vital Signs: Vital Signs - 24 hr Temp Pulse Resp BP Pulse Ox 04/26/24 16:30 97.2 F 66 140/95 97 04/26/24 15:54 98 04/26/24 15:54 68 16 97 04/26/24 11:32 96.7 F 96 H 16 137/90 98 Pain Assessment - Last Documented Pain Intensity 2 Intake and Output: Intake & Output 04/24/24 04/25/24 04/26/24 04/27/24 11:59 11:59 11:59 11:59 Weight 56.1 kg 61 kg LAB: I have reviewed the Labs in [email or web address]. Radiology Exams: Radiology Procedures Category Date Time Status CHEST 1 VIEW (PORTABLE) Stat Exams 04/26/24 11:56 Completed ECHO W/2D AND DOPPLER [US] Stat Exams 04/26/24 14:55 Taken - ECHO Echo: image reviewed by me Assessment & Plan (1) New onset atrial fibrillation Current Visit: Yes Status: Acute Assessment & Plan: New onset afib. Echo reviewed which was mostly unremarkable (see report for details). Discussed extensively the risks/benefits of AC in this patient with a CHADSVASC of 3. She agrees with AC; will start apixaban 5mg BID. We are one month out from her NSTEMI and stent placement so will continue ticagrelor and stop asa to minimize bleeding risk. -check thyroid hormones (I've ordered) as TSH is on the lower side and increased thyroid hormone could be driving her afib. She does say her levo was recently adjusted. Please adjust if necessary. -titrate beta pietro for symptom relief and rate control. -no further inpatient cardiac w/u is needed at this time; please arrange for outpatient f/u with her normal geophysical support specialist. Code(s): I48.91 - UNSPECIFIED ATRIAL FIBRILLATION - Encounter Encounter: "The entirety of this encounter was performed via Telemedicine using audio and visual "
[2024-04-26] MEDS ORDERED: Toprol-Xl 25MG Tablets ONE (21:58)
[2024-04-26] MEDS: ELIQUIS 2.5 MG TABLET PO SCH (22:00)
[2024-04-26] MEDS: xanAX 0.25 MG PO SCH (22:00)
[2024-04-26] MEDS: Lopressor 25MG Tab PO SCH (22:02)
[2024-04-26] MEDS ORDERED: ZOCOR 20MG ONE (22:22)
[2024-04-26] MEDS: ZOCOR 20MG PO SCH (22:51)
[2024-04-26] MEDS: BRILINTA PO SCH (22:56)
--- NOTE | 2024-04-27 05:06 | PCM.DS ---
Discharge Summary Date of Admission: 04/26/24 15:51 Date of Discharge: 04/27/24 Admitting Physician: SOFÍA DAVID MD Consults: Consults on Case 04/26/24 16:13 Consult Cardiology ROUTINE Primary Care Provider: KULDEEP COE Allergies Allergies Penicillins Adverse Reaction (Verified 04/26/24 16:13) [facility] Sulfa (Sulfonamide Antibiotics) Adverse Reaction (Verified 04/26/24 16:13) [facility] Summary - Hospital Course Hospital Course: is a 64 year old female with a pmxh of HTN, HLD, anxiety, hypothyroidism,Renee's esophagus, IBS, and recent NSTEMI 03/22/24 with stenting (Cardio rehab x 2.5 weeks)patient of Dr. Bingham (Cardiology) presented to ED with complaints of left-sided chest pressure. Patient states that yesterday she generally was not feeling well with chest pressure and "heart racing" sensation. The "heart racing" sensation has since resolved. She endorses she was feeling better this morning other than some mild chest pressure. When hooked up to the EKG machine by cardio rehab she was noted to be in AFIB and sent to ED. She describes the pain as sharp/pressure-like, non-radiating with no associated symptoms. No relieving/aggravating factors. She states she has been short of breath since being placed on Brilinta. She reports symptoms are not similar to her prior [place]. Upon arrival to ED, vitals stable. EKG interpreted by ED physician reported as RATE (94), A-fib, NORMAL AXIS, NORMAL INTERVALS, NORMAL QRS, Other (T wave inversion anterolateral leads). CXR with no acute cardiopulmonary processes. Labs remarkable for leukopenia with WBC at 3.5, Co2 at 21, GAP 16.5, BNP 3170, and TSH at 0.055. Patient admitted for new onset AFIB. Cardiology consulted Echo reviewed which was mostly unremarkable per cards reports and with recs to add eliquis 5mg bid. Metoprolol has been increased 25mg bid. Continue ticagrelor and stop asa to minimize bleeding risk. TSH level was low which could be contributing to AFIB - recent increase in synthroid dosing 3 months ago from 50mcg to 100mcg. Will decrease dose to 88mcg - patient advised follow up with pcp. Patient to follow up with Dr. Bingham Monday. Patient agreeable to plan - no further chest pressure/heart fluttering/racing. HR controlled. Patient stable for discharge. Discharge Note New Diagnosis:AFIB New Medications: Eliquis - increase metoprolol Follow Up: Cardiology/PCP -recheck TSH with dose change Latest Assessment & Plan (1) New onset atrial fibrillation Current Visit: Yes Status: Acute Assessment & Plan: -Ekg interpreted by ED physician reported as RATE (94), A-fib, NORMAL AXIS, NORMAL INTERVALS, NORMAL QRS, Other (T wave inversion anterolateral leads) -TSH level reviewed and low, consider dose reduce levothyroxine after repeat TSH level in the morning -Cardiology consult, appreciate recs -trops x 1 wnl - trend -ddimer -increase metoprolol tartrate to 25mg bid -echo obtained and pending cardiology read -MG/Potas reviewed and WNL - optimize electrolytes -trend -tele -Repeat EKG in the a.m. Code(s): I48.91 - UNSPECIFIED ATRIAL FIBRILLATION (2) Chest pain Current Visit: No Status: Acute Assessment & Plan: -EKG as stated above - see plan for AFIB -Echo pending -Cardiology consulted -trops WNL x 1 - trend -repeat EKG in the a.m. Code(s): R07.9 - CHEST PAIN, UNSPECIFIED (3) HTN (hypertension) Current Visit: Yes Status: Acute Assessment & Plan: -stable continue home meds Code(s): I10 - ESSENTIAL (PRIMARY) HYPERTENSION (4) CAD (coronary artery disease) Current Visit: Yes Status: Acute Assessment & Plan: -[place] with recent stent 03/22/24 -Follows with Dr. Bingham cardiology -Cardiorehab -- x 2.5 weeks -continue home meds Code(s): I25.10 - ATHSCL HEART DISEASE OF [place] CORONARY ARTERY W/O ANG PCTRS (5) Hypothyroid Current Visit: Yes Status: Acute Assessment & Plan: -TSH level low - will repeat in the setting of AFib prior to dose adjustment Code(s): E03.9 - HYPOTHYROIDISM, UNSPECIFIED (6) Anxiety Current Visit: Yes Status: Acute Assessment & Plan: -continue home meds I spent 35 minutes [id number] with the patient on the day of discharge performing discharge exam, discussing hospital stay and discharge instructions with patient and caregivers, preparation of discharge records, prescriptions & referral forms and addressing any questions/concerns the patient had as documented above. - Vitals & Intake/Output Vital Signs: Vital Signs Temperature 97.3 F 04/27/24 04:00 Pulse Rate 77 04/27/24 04:00 Respiratory Rate 16 04/27/24 04:00 Blood Pressure 108/60 04/27/24 04:00 O2 Sat by Pulse Oximetry 97 04/27/24 04:00 Intake & Output: Intake & Output 04/24/24 04/25/24 04/26/24 04/27/24 11:59 11:59 11:59 11:59 Intake Total 1060 Balance 1060 Weight 56.1 kg 61 kg - Lab Result Diagrams: 04/27/24 05:38 04/27/24 05:38 Lab Results-Last 24 Hrs: Lab Results-Last 24 Hours 04/26/24 04/26/24 04/26/24 Range/Units 11:56 12:00 12:00 WBC 3.5 L (3.98-10.04) x10^3/uL RBC 4.17 (3.93-5.22) x10^6/uL Hgb 13.1 (11.2-15.7) g/dL Hct 39.2 (34.1-44.9) % MCV 94.0 (79.4-94.8) fL MCH 31.4 (25.6-32.2) pg MCHC 33.4 (32.2-35.5) g/dL RDW 12.6 (11.7-14.4) % Plt Count 197 (182-369) x10^3/uL MPV 11.5 (9.4-12.3) fL Gran % 55.0 (34.0-71.1) % Immature Gran % (Auto) 0.0 L (0.001-0.429) % Nucleat RBC Rel Count 0.0 (0.00-0.2) % Eos # (Auto) 0.09 (0.04-0.36) x10^3/uL Immature Gran # (Auto) 0.00 L (0.001-0.031) x10^3u/L Absolute Lymphs (auto) 1.02 L (1.18-3.74) x10^3/uL Absolute Monos (auto) 0.46 (0.24-0.86) x10^3/uL Absolute Nucleated RBC 0.00 (0.00-0.012) x10^3u/L Lymphocytes % 28.9 (19.3-51.7) % Monocytes % 13.0 H (4.7-12.5) % Eosinophils % 2.5 (0.7-5.8) % Basophils % 0.6 (0.1-1.2) % Absolute Granulocytes 1.94 (1.56-6.13) x10^3/uL Basophils # 0.02 (0.01-0.08) x10^3/uL D-Dimer (0.0-0.50) mg/L Sodium 142 (135-145) mmol/L Potassium 4.6 (3.5-5.1) mmol/L Chloride 109 H (98-107) mmol/L Carbon Dioxide 21 L (22-30) mmol/L Anion Gap 16.5 H (5-15) MEQ/L BUN 12 (7-17) mg/dL Creatinine 0.77 (0.52-1.04) mg/dL Estimated GFR 85.6 ML/MIN Glucose 104 (74-106) mg/dL Calcium 9.9 (8.4-10.2) mg/dL Magnesium 2.1 (1.6-2.3) mg/dL Total Bilirubin 1.00 (0.2-1.3) mg/dL AST 29 (14-36) U/L ALT 32 (0-35) U/L Alkaline Phosphatase 121 (38-126) U/L Troponin I < 0.012 (0.000-0.033) ng/mL NT-Pro-B Natriuret Pep 3170 (<300) pg/mL Serum Total Protein 7.3 (6.3-8.2) g/dL Albumin 4.8 (3.5-5.0) g/dL TSH 3rd Generation 0.055 L (0.470-4.680) mIU/L 04/26/24 04/26/24 04/26/24 Range/Units 18:25 18:25 22:00 WBC (3.98-10.04) x10^3/uL RBC (3.93-5.22) x10^6/uL Hgb (11.2-15.7) g/dL Hct (34.1-44.9) % MCV (79.4-94.8) fL MCH (25.6-32.2) pg MCHC (32.2-35.5) g/dL RDW (11.7-14.4) % Plt Count (182-369) x10^3/uL MPV (9.4-12.3) fL Gran % (34.0-71.1) % Immature Gran % (Auto) (0.001-0.429) % Nucleat RBC Rel Count (0.00-0.2) % Eos # (Auto) (0.04-0.36) x10^3/uL Immature Gran # (Auto) (0.001-0.031) x10^3u/L Absolute Lymphs (auto) (1.18-3.74) x10^3/uL Absolute Monos (auto) (0.24-0.86) x10^3/uL Absolute Nucleated RBC (0.00-0.012) x10^3u/L Lymphocytes % (19.3-51.7) % Monocytes % (4.7-12.5) % Eosinophils % (0.7-5.8) % Basophils % (0.1-1.2) % Absolute Granulocytes (1.56-6.13) x10^3/uL Basophils # (0.01-0.08) x10^3/uL D-Dimer 0.19 (0.0-0.50) mg/L Sodium (135-145) mmol/L Potassium (3.5-5.1) mmol/L Chloride (98-107) mmol/L Carbon Dioxide (22-30) mmol/L Anion Gap (5-15) MEQ/L BUN (7-17) mg/dL Creatinine (0.52-1.04) mg/dL Estimated GFR ML/MIN Glucose (74-106) mg/dL Calcium (8.4-10.2) mg/dL Magnesium (1.6-2.3) mg/dL Total Bilirubin (0.2-1.3) mg/dL AST (14-36) U/L ALT (0-35) U/L Alkaline Phosphatase (38-126) U/L Troponin I < 0.012 < 0.012 (0.000-0.033) ng/mL NT-Pro-B Natriuret Pep (<300) pg/mL Serum Total Protein (6.3-8.2) g/dL Albumin (3.5-5.0) g/dL TSH 3rd Generation (0.470-4.680) mIU/L - Radiology Exams Ordered Rad Exams-Entire Visit: Radiology Procedures Category Date Time Status CHEST 1 VIEW (PORTABLE) Stat Exams 04/26/24 11:56 Completed ECHO W/2D AND DOPPLER [US] Stat Exams 04/26/24 14:55 Taken - Procedures and Test Procedures and Tests throughout Hospitalization: Therapy Orders & Screens 04/26/24 15:54 Respiratory Therapy Consult ONCE Comment: Reason For Exam: 04/26/24 16:30 EKG REPEAT IN AM Comment: Diagnosis: chest pressure/afib Discharge Exam General Appearance: no apparent distress Neurologic Exam: alert, oriented x 3, cooperative Eye Exam: PERRL Ears, Nose, Throat Exam: normal ENT inspection Neck Exam: normal inspection Respiratory Exam: normal breath sounds, lungs clear Cardiovascular Exam: irregular Gastrointestinal/Abdomen Exam: soft, normal bowel sounds Pelvic Exam: deferred Rectal Exam: deferred Back Exam: normal inspection Extremity Exam: normal inspection Skin Exam: normal color Final Diagnosis/Problem List - Final Discharge Diagnosis/Problem (1) New onset atrial fibrillation Current Visit: Yes Status: Acute Code(s): I48.91 - UNSPECIFIED ATRIAL FIBRILLATION (2) Chest pain Current Visit: No Status: Resolved Code(s): R07.9 - CHEST PAIN, UNSPECIFIED (3) HTN (hypertension) Current Visit: Yes Status: Chronic Code(s): I10 - ESSENTIAL (PRIMARY) HYPERTENSION (4) CAD (coronary artery disease) Current Visit: Yes Status: Chronic Code(s): I25.10 - ATHSCL HEART DISEASE OF [place] CORONARY ARTERY W/O ANG PCTRS (5) Hypothyroid Current Visit: Yes Status: Chronic Code(s): E03.9 - HYPOTHYROIDISM, UNSPECIFIED (6) Anxiety Current Visit: Yes Status: Chronic Code(s): F41.9 - ANXIETY DISORDER, UNSPECIFIED - Discharge Disposition: Home, Self-Care Condition: Stable Prescriptions: New Apixaban [Eliquis 2.5 mg Tablet] 5 mg PO BID 30 Days #60 tablet Metoprolol Tartrate 25 mg [Lopressor 25MG Tab] 25 mg PO BID 30 Days #60 tablet Levothyroxine Sodium 88 Mcg [Synthroid 88 Mcg] 88 mcg PO DAILY 30 Days #30 tablet Continue PANTOPRAZOLE 40 mg Tablet [Protonix 40MG Tablet] 40 mg PO DAILY Atorvastatin Calcium 40 mg PO HS Paroxetine HCl 20 mg [Paxil 20 MG] 10 mg PO DAILY Sucralfate 1 gm [Carafate 1 GM] 1 g PO DAILY Potassium Chloride 10 meq PO DAILY ALPRAZolam 0.25 MG [xanAX 0.25 MG] 0.25 mg PO HS Lisinopril 5 mg [Zestril 5 MG] 2.5 mg PO DAILY Ticagrelor [Brilinta] 90 mg PO BID Discontinued Levothyroxine Sodium 100 Mcg [Synthroid 100 Mcg] 100 mcg PO DAILY Metoprolol Tartrate 25 mg [Lopressor 25MG Tab] 12.5 mg PO BID Aspirin [Adult Aspirin Regimen] 81 mg PO DAILY Follow up with: KULDEEP COE MD [Primary Care Provider] - FLOYD BINGHAM [CONSULTING PHYSICIAN] - Call for Appointment (Please call office Monday for appt)
[2024-04-27 05:55] LABS: Absolute Neutrophil Ct (ANC) 2.13 x10^3/uL (1.56-6.13); BASOPHIL % 0.8 % (0.1-1.2); Basophil (Absolute #) 0.03 x10^3/uL (0.01-0.08); Eosinophil (Absolute #) 0.08 x10^3/uL (0.04-0.36); Hematocrit 36.1 % (34.1-44.9); Hemoglobin 12.1 g/dL (11.2-15.7); IMMATURE GRAN # 0.01 x10^3u/L (0.001-0.031); IMMATURE GRAN % 0.3 % (0.001-0.429); Lymphocytes % 30.3 % (19.3-51.7); Mean Corpuscular Hemoglobin 31.5 pg (25.6-32.2); Mean Corpuscular Hgb Concent. 33.5 g/dL (32.2-35.5); Mean Platelet Volume 12.3 fL (9.4-12.3); Monocyte (Absolute #) 0.51 x10^3/uL (0.24-0.86); Monocytes % 12.9 % (4.7-12.5); Neutrophil % 53.7 % (34.0-71.1); Platelet Count 203 x10^3/uL (182-369); Red Blood Count 3.84 x10^6/uL (3.93-5.22); Red Cell Distribution Width 12.8 % (11.7-14.4)
[2024-04-27 06:11] LABS: ALBUMIN 4.2 g/dL (3.5-5.0); ANION GAP 14.2 MEQ/L (5-15); BILIRUBIN,TOTAL 0.9 mg/dL (0.2-1.3); Calcium 9.3 mg/dL (8.4-10.2); Creatinine 1 0.88 mg/dL (0.52-1.04); EST GLOMERULAR FILTRATION RATE 72.9 ML/MIN; MAGNESIUM 2.2 mg/dL (1.6-2.3); Potassium 3.7 mmol/L (3.5-5.1); Total Protein 6.7 g/dL (6.3-8.2)
[2024-04-27] MEDS: Paxil 20 MG PO SCH (08:07)
[2024-04-27] MEDS: Protonix 40MG Tablet PO SCH (08:07)
[2024-04-27] MEDS: Zestril 5 MG PO SCH (08:08)
[2024-04-27] MEDS: NON-FORMULARY ITEM (Atorvastatin Calcium [Atorvastatin Calcium] 10 MG Tablet) PO SCH (08:33)
[2024-04-27] MEDS ORDERED: SYNTHROID 100 MCG PO SCH ×2 (10:00)
[2024-04-27] MEDS: SYNTHROID 88 MCG PO SCH (10:18)
[2024-04-27] MEDS: Carafate 1 GM PO SCH (10:21)
[2024-04-27 11:34] VITALS: BP 103/65; PULSE 58; RESP 14; TEMP 98
[2024-04-27] MEDS: Klor Con PO SCH (12:13)
[2024-04-28 11:59] LABS: Triiodothyronine (T3), Free 3.6 pg/mL (2.0-4.4)
== END 2024-04-27 13:10 | disposition home or self-care (01) ==
LOC: ED 11:31 → MED SURG 15:51
PROVIDERS: ADMIT Internal Medicine; ATTEND Internal Medicine
DX: I48.91 Unspecified atrial fibrillation (principal); R07.9 Chest pain, unspecified; I25.10 Atherosclerotic heart disease of native coronary artery without angina pectoris; I10 Essential (primary) hypertension; E03.9 Hypothyroidism, unspecified; E78.5 Hyperlipidemia, unspecified; I25.2 Old myocardial infarction; F41.9 Anxiety disorder, unspecified; K22.70 Barrett's esophagus without dysplasia; Z79.01 Long term (current) use of anticoagulants
CPT/HCPCS: 36415; 71045; 80053; 80061; 83721; 83735; 83880; 84436; 84443; 84480; 84481; 84484; 85025; 85379; 93005; 93268; 93306; 94760; 99284; G0378; Q3014; J1650; A9270-GY

== ENCOUNTER 2025-03-29 20:10 | Observation (INO) | payer MEDICARE ==
--- NOTE | 2025-03-29 20:16 | ERPHSYRPT ---
- History of Present Illness Time Seen by Provider: 03/29/25 20:15 Historian: patient, family Exam Limitations: no limitations Physician History: Pt had onset of intermittent CP past few days until 1400 today when it became more consistent and began radiating down the left arm and to the left jaw. She also went into her afib since then . she had an WA 1 year ago and 1 stent , then 2 ablations for subsequent afib which is intermittent and she is on meds including elliquis and plavix for this . Some SObreath now. Discussed with pt and available family risks and benefits of testing/Tx including CBC, CMP, EKG, Trop, BNP, D-dimer, UA, Amylase, Lipase , CXR, swabs for Covid, RSV, Flu, NTG, Antibiotic and they wish to proceed so these are ordered. Results discussed with pt and available family. Timing/Duration: day(s), intermittent, worse Activities at Onset: none Quality: fullness, pressure, tightness Location: substernal Chest Pain Radiation: jaw, neck, arm Severity of Pain-Max: moderate Severity of Pain-Current: moderate Modifying Factors: Improves With: nothing Associated Symptoms: shortness of breath, fatigue Prior Chest Pain/Cardiac Workup: cardiac cath, heart attack, recently seen/treated Nitro Today/Relief: 0.4 mg x 1, provided by ED, no relief Aspirin Treatment Today: 81 mg x 4, provided by ED Allergies/Adverse Reactions: Penicillins Adverse Reaction (Verified 04/26/24 16:13) Hives Sulfa (Sulfonamide Antibiotics) Adverse Reaction (Verified 04/26/24 16:13) Hives Home Medications: ALPRAZolam 0.25 MG [xanAX 0.25 MG] 0.25 mg PO HS 03/22/24 [History] PANTOPRAZOLE 40 mg Tablet [Protonix 40MG Tablet] 40 mg PO DAILY 03/22/24 [History] Paroxetine HCl 20 mg [Paxil 20 MG] 10 mg PO DAILY 03/22/24 [History] Potassium Chloride 10 meq PO DAILY 03/22/24 [History] Sucralfate 1 gm [Carafate 1 GM] 1 g PO DAILY 03/22/24 [History] Lisinopril 5 mg [Zestril 5 MG] 5 mg PO DAILY 04/26/24 [History] Clopidogrel Bisulfate [Clopidogrel] 75 mg PO DAILY 03/29/25 [History] Levothyroxine Sodium 88 Mcg [Synthroid 88 Mcg] 77 mcg PO DAILY 03/29/25 [History] dilTIAZem HCL [Diltiazem 24Hr ER] 120 mg PO DAILY 03/29/25 [History] Hx Tetanus, Diphtheria Vaccination/Date Given: Yes Hx Influenza Vaccination/Date Given: No Hx Pneumococcal Vaccination/Date Given: No Travel Risk - Emerging Infectious Disease Are you exhibiting symptoms associated with any current EIDs: No - Review of Systems Constitutional: Fatigue, No Fever, No Chills Eyes: No Symptoms Ears, Nose, & Throat: No Symptoms Respiratory: Dyspnea, No Cough Cardiac: Chest Pain, No Edema, No Syncope Abdominal/Gastrointestinal: No Abdominal Pain, No Nausea, No Vomiting, No Diarrhea Genitourinary Symptoms: No Dysuria Musculoskeletal: Neck Pain, No Back Pain, No Fall, No Injury Skin: No Rash Neurological: No Dizziness, No Focal Weakness, No Sensory Changes Psychological: No Symptoms Endocrine: No Symptoms Hematologic/Lymphatic: No Symptoms Immunological/Allergic: No Symptoms All Other Systems: Reviewed and Negative - Past Medical History Pertinent Past Medical History: Yes Neurological History: No Pertinent History ENT History: No Pertinent History Cardiac History: High Cholesterol, Hypertension, Other Respiratory History: No Pertinent History Endocrine Medical History: Hypothyroidism Musculoskeletal History: No Pertinent History GI Medical History: Irritable Bowel, Other History: No Pertinent History Psycho-Social History: Anxiety Female Reproductive Disorders: No Pertinent History Other Medical History: barretts esophagus, NSTEMI - Past Surgical History Past Surgical History: Yes Neuro Surgical History: No Pertinent History Cardiac: Cardiac Catheterization, Cardiac Stent Respiratory: No Pertinent History Gastrointestinal: Other Genitourinary: No Pertinent History Musculoskeletal: No Pertinent History Female Surgical History: No Pertinent History Other Surgical History: cystocele, rectocele, colonoscopy, stent placed in03/23/24 Significant Family History: heart disease (maternal/paternal ) - Social History Smoking Status: Never smoker Exposure to second hand smoke: No Drug Use: none - Social Determinants of Health Will the patient participate in the screening: Yes Do you worry about a steady place to live?: No In the past 12 months,have you had to go without utilities?: No Transportation Issues: No Has anyone in your support network made you feel unsafe?: No Have you or anyone in your house had to go w/o enough food: No - Nursing Vital Signs Nursing Vital Signs: Initial Vital Signs Temperature 97.1 F 03/29/25 20:15 Pulse Rate 108 H 03/29/25 20:15 Respiratory Rate 18 03/29/25 20:15 Blood Pressure 155/93 03/29/25 20:15 O2 Sat by Pulse Oximetry 97 03/29/25 20:15 Pain Scale Pain Intensity 0 - Physical Exam General Appearance: no apparent distress, alert Eye Exam: PERRL/EOMI, eyes nml inspection Ears, Nose, Throat Exam: normal ENT inspection, moist mucous membranes Neck Exam: normal inspection, non-tender, supple, full range of motion Respiratory Exam: normal breath sounds, lungs clear, No respiratory distress Cardiovascular Exam: regular rate/rhythm, normal heart sounds, normal peripheral pulses Gastrointestinal/Abdomen Exam: soft, No tenderness, No mass Pelvic Exam: deferred Rectal Exam: deferred Back Exam: normal inspection, No CVA tenderness, No vertebral tenderness Extremity Exam: normal inspection, normal range of motion Neurologic Exam: alert, oriented x 3, cooperative, normal mood/affect, sensation nml, No motor deficits Skin Exam: normal color, warm, dry Lymphatic Exam: inguinal node tender (L) SpO2: 97 O2 Delivery: Room Air - Course Nursing assessment & vital signs reviewed: Yes EKG Interpreted by Me: Sinus Tach, NORMAL AXIS, 1st degree AV Block, NORMAL QRS, Ischemic ST-T changes - Radiology Exams Chest X-ray Interpretation: Interpreted by me, No Pneumothorax, Other (possible widened esoph or aorta - checking CT. ) - CT Exams Chest CT Interpretation: Tele-radiologist Report, Other (granulomas, old lung scar, mediastinum normal per rad reading.) Ordered Tests: Active Orders 24 hr Category Date Time Status EKG-ER Only STAT Care 03/29/25 20:23 Active IV Insertion STAT Care 03/29/25 20:23 Active CHEST 1 VIEW (PORTABLE) Stat Exams 03/29/25 20:24 Completed CHEST WITHOUT CONTRAST [CT] Stat Exams 03/29/25 22:03 Completed AMYLASE Stat Lab 03/29/25 20:20 Completed BNPII [NT PRO BNPII] Stat Lab 03/29/25 20:20 Completed CBC W DIFF Stat Lab 03/29/25 20:25 Completed CMP Stat Lab 03/29/25 20:20 Completed D-DIMER QUANTITATIVE Stat Lab 03/29/25 20:20 Completed LIPASE Stat Lab 03/29/25 20:20 Completed Lactic Acid Stat Lab 03/29/25 20:40 Completed TROPONIN Q4H Lab 03/29/25 20:20 Completed TROPONIN Q4H Lab 03/30/25 01:00 Completed TROPONIN Q4H Lab 03/30/25 04:30 Ordered UA W/RFX UR CULTURE Stat Lab 03/29/25 23:22 Completed Medication Summary Generic Name Dose Route Start Last Admin Trade Name Freq PRN Reason Stop Dose Admin Sodium Chloride 1,000 mls @ 100 mls/hr 03/29/25 20:30 03/29/25 23:59 Sodium Chloride 0.9% 1000 Ml IV 04/28/25 20:29 Infused .Q10H CAMPOS Infusion Nitroglycerin/Dextrose 250 mls @ 1.5 mls/hr 03/29/25 20:51 03/29/25 21:42 Ntg 0.2mg/Ml In D5w Glass IV 04/28/25 20:50 5 mcg/min .Q24H PRN 1.5 mls/hr CHEST PAIN Administration Protocol 5 MCG/MIN Sodium Chloride 1,000 mls @ 150 mls/hr 03/30/25 00:30 03/30/25 00:24 Sodium Chloride 0.9% 1000 Ml IV 04/29/25 00:29 150 mls/hr .Q6H40M CAMPOS Administration Discontinued Medications Generic Name Dose Route Start Last Admin Trade Name Freq PRN Reason Stop Dose Admin Aspirin 324 mg 03/29/25 21:37 03/29/25 21:42 Aspirin 81 Mg Tab.Chew PO 03/29/25 21:38 324 mg STAT ONE Administration Aspirin Confirm 03/29/25 21:41 Aspirin 81 Mg Tab.Chew Administered 03/29/25 21:42 Dose 324 mg .ROUTE .STK-MED ONE Esmolol HCl 25 mg 03/29/25 23:56 03/30/25 00:05 Esmolol Hcl 10 Mg/Ml Vial IV 03/29/25 23:57 25 mg STAT ONE Administration Lorazepam 1 mg 03/30/25 00:01 03/30/25 00:06 Lorazepam 1 Mg Tablet PO 03/30/25 00:02 1 mg STAT ONE Administration Lorazepam Confirm 03/30/25 00:05 Lorazepam 1 Mg Tablet Administered 03/30/25 00:06 Dose 1 mg .ROUTE .STK-MED ONE Nitroglycerin 0.4 mg 03/29/25 20:26 03/29/25 20:33 Nitroglycerin 0.4 Mg (Ed) 0.4 Mg Tab.Subl SL 03/29/25 20:27 0.4 mg STAT ONE Administration Nitroglycerin Confirm 03/29/25 20:32 Nitroglycerin 0.4 Mg (Ed) 0.4 Mg Tab.Subl Administered 03/29/25 20:33 Dose 0.4 mg SL .STK-MED ONE Ondansetron HCl 4 mg 03/29/25 23:48 03/29/25 23:49 Ondansetron Hcl 4 Mg/2 Ml Vial IV 03/29/25 23:49 4 mg STAT ONE Administration Ondansetron HCl Confirm 03/29/25 23:48 Ondansetron Hcl 4 Mg/2 Ml Vial Administered 03/29/25 23:49 Dose 4 mg .ROUTE .STK-MED ONE Lab/Rad Data: Laboratory Result Diagrams 03/29/25 20:25 03/29/25 20:20 Laboratory Results 03/30/25 03/29/25 03/29/25 Range/Units 01:00 23:22 20:40 WBC (3.98-10.04) x10^3/uL RBC (3.93-5.22) x10^6/uL Hgb (11.2-15.7) g/dL Hct (34.1-44.9) % MCV (79.4-94.8) fL MCH (25.6-32.2) pg MCHC (32.2-35.5) g/dL RDW (11.7-14.4) % Plt Count (182-369) x10^3/uL MPV (9.4-12.3) fL Gran % (34.0-71.1) % Immature Gran % (Auto) (0.001-0.429) % Nucleat RBC Rel Count (0.00-0.2) % Eos # (Auto) (0.04-0.36) x10^3/uL Immature Gran # (Auto) (0.001-0.031) x10^3u/L Absolute Lymphs (auto) (1.18-3.74) x10^3/uL Absolute Monos (auto) (0.24-0.86) x10^3/uL Absolute Nucleated RBC (0.00-0.012) x10^3u/L Lymphocytes % (19.3-51.7) % Monocytes % (4.7-12.5) % Eosinophils % (0.7-5.8) % Basophils % (0.1-1.2) % Absolute Granulocytes (1.56-6.13) x10^3/uL Basophils # (0.01-0.08) x10^3/uL D-Dimer (0.0-0.50) mg/L Sodium (135-145) mmol/L Potassium (3.5-5.1) mmol/L Chloride (98-107) mmol/L Carbon Dioxide (22-30) mmol/L Anion Gap (5-15) MEQ/L BUN (7-17) mg/dL Creatinine (0.52-1.04) mg/dL Estimated GFR ML/MIN Glucose (74-106) mg/dL Lactic Acid 0.9 (0.4-2.0) Calcium (8.4-10.2) mg/dL Total Bilirubin (0.2-1.3) mg/dL AST (14-36) U/L ALT (0-35) U/L Alkaline Phosphatase (38-126) U/L Troponin I < 0.012 (0.000-0.033) ng/mL NT-Pro-B Natriuret Pep (<300) pg/mL Serum Total Protein (6.3-8.2) g/dL Albumin (3.5-5.0) g/dL Amylase (30-110) U/L Lipase (23-300) U/L Free T4 (0.78-2.19) ng/dL Urine Color Yellow (Yellow) Urine Appearance Clear (Clear) Urine pH 6.5 (4.6-8.0) Ur Specific [place] <=1.005 (1.005-1.030) Urine Protein Negative (Negative) Urine Glucose (UA) Negative (Negative) mg/dL Urine Ketones Negative (Negative) Urine Blood Negative (Negative) Urine Nitrite Negative (Negative) Urine Bilirubin Negative (Negative) Urine Urobilinogen 0.2 (0.2) mg/dL Ur Leukocyte Esterase Negative (Negative) U Hyaline Cast (Auto) NONE SEEN (0-2) /LPF Urine Microscopic RBC 0-2 (0-5) /HPF Urine Microscopic WBC 0-2 (0-5) /HPF Ur Epithelial Cells None Seen (None Seen) /HPF Urine Bacteria None Seen (None Seen) /HPF Urine Culture Reflexed NO (NO) Influenza Type A Ag (NEGATIVE) Influenza Type B Ag (NEGATIVE) RSV (PCR) (NEGATIVE) SARS-CoV-2 (PCR) (NEGATIVE) 03/29/25 03/29/25 03/29/25 Range/Units 20:38 20:25 20:20 WBC 6.3 (3.98-10.04) x10^3/uL RBC 4.43 (3.93-5.22) x10^6/uL Hgb 13.9 (11.2-15.7) g/dL Hct 40.5 (34.1-44.9) % MCV 91.4 (79.4-94.8) fL MCH 31.4 (25.6-32.2) pg MCHC 34.3 (32.2-35.5) g/dL RDW 11.9 (11.7-14.4) % Plt Count 242 (182-369) x10^3/uL MPV 10.6 (9.4-12.3) fL Gran % 56.0 (34.0-71.1) % Immature Gran % (Auto) 0.2 (0.001-0.429) % Nucleat RBC Rel Count 0.0 (0.00-0.2) % Eos # (Auto) 0.04 (0.04-0.36) x10^3/uL Immature Gran # (Auto) 0.01 (0.001-0.031) x10^3u/L Absolute Lymphs (auto) 2.11 (1.18-3.74) x10^3/uL Absolute Monos (auto) 0.59 (0.24-0.86) x10^3/uL Absolute Nucleated RBC 0.00 (0.00-0.012) x10^3u/L Lymphocytes % 33.4 (19.3-51.7) % Monocytes % 9.3 (4.7-12.5) % Eosinophils % 0.6 L (0.7-5.8) % Basophils % 0.5 (0.1-1.2) % Absolute Granulocytes 3.54 (1.56-6.13) x10^3/uL Basophils # 0.03 (0.01-0.08) x10^3/uL D-Dimer (0.0-0.50) mg/L Sodium (135-145) mmol/L Potassium (3.5-5.1) mmol/L Chloride (98-107) mmol/L Carbon Dioxide (22-30) mmol/L Anion Gap (5-15) MEQ/L BUN (7-17) mg/dL Creatinine (0.52-1.04) mg/dL Estimated GFR ML/MIN Glucose (74-106) mg/dL Lactic Acid (0.4-2.0) Calcium (8.4-10.2) mg/dL Total Bilirubin (0.2-1.3) mg/dL AST (14-36) U/L ALT (0-35) U/L Alkaline Phosphatase (38-126) U/L Troponin I (0.000-0.033) ng/mL NT-Pro-B Natriuret Pep (<300) pg/mL Serum Total Protein (6.3-8.2) g/dL Albumin (3.5-5.0) g/dL Amylase (30-110) U/L Lipase (23-300) U/L Free T4 1.34 (0.78-2.19) ng/dL Urine Color (Yellow) Urine Appearance (Clear) Urine pH (4.6-8.0) Ur Specific [place] (1.005-1.030) Urine Protein (Negative) Urine Glucose (UA) (Negative) mg/dL Urine Ketones (Negative) Urine Blood (Negative) Urine Nitrite (Negative) Urine Bilirubin (Negative) Urine Urobilinogen (0.2) mg/dL Ur Leukocyte Esterase (Negative) U Hyaline Cast (Auto) (0-2) /LPF Urine Microscopic RBC (0-5) /HPF Urine Microscopic WBC (0-5) /HPF Ur Epithelial Cells (None Seen) /HPF Urine Bacteria (None Seen) /HPF Urine Culture Reflexed (NO) Influenza Type A Ag NEGATIVE (NEGATIVE) Influenza Type B Ag NEGATIVE (NEGATIVE) RSV (PCR) NEGATIVE (NEGATIVE) SARS-CoV-2 (PCR) NEGATIVE (NEGATIVE) 03/29/25 03/29/25 03/29/25 Range/Units 20:20 20:20 20:20 WBC (3.98-10.04) x10^3/uL RBC (3.93-5.22) x10^6/uL Hgb (11.2-15.7) g/dL Hct (34.1-44.9) % MCV (79.4-94.8) fL MCH (25.6-32.2) pg MCHC (32.2-35.5) g/dL RDW (11.7-14.4) % Plt Count (182-369) x10^3/uL MPV (9.4-12.3) fL Gran % (34.0-71.1) % Immature Gran % (Auto) (0.001-0.429) % Nucleat RBC Rel Count (0.00-0.2) % Eos # (Auto) (0.04-0.36) x10^3/uL Immature Gran # (Auto) (0.001-0.031) x10^3u/L Absolute Lymphs (auto) (1.18-3.74) x10^3/uL Absolute Monos (auto) (0.24-0.86) x10^3/uL Absolute Nucleated RBC (0.00-0.012) x10^3u/L Lymphocytes % (19.3-51.7) % Monocytes % (4.7-12.5) % Eosinophils % (0.7-5.8) % Basophils % (0.1-1.2) % Absolute Granulocytes (1.56-6.13) x10^3/uL Basophils # (0.01-0.08) x10^3/uL D-Dimer < 0.19 (0.0-0.50) mg/L Sodium (135-145) mmol/L Potassium (3.5-5.1) mmol/L Chloride (98-107) mmol/L Carbon Dioxide (22-30) mmol/L Anion Gap (5-15) MEQ/L BUN (7-17) mg/dL Creatinine (0.52-1.04) mg/dL Estimated GFR ML/MIN Glucose (74-106) mg/dL Lactic Acid (0.4-2.0) Calcium (8.4-10.2) mg/dL Total Bilirubin (0.2-1.3) mg/dL AST (14-36) U/L ALT (0-35) U/L Alkaline Phosphatase (38-126) U/L Troponin I < 0.012 (0.000-0.033) ng/mL NT-Pro-B Natriuret Pep 204 (<300) pg/mL Serum Total Protein (6.3-8.2) g/dL Albumin (3.5-5.0) g/dL Amylase (30-110) U/L Lipase (23-300) U/L Free T4 (0.78-2.19) ng/dL Urine Color (Yellow) Urine Appearance (Clear) Urine pH (4.6-8.0) Ur Specific [place] (1.005-1.030) Urine Protein (Negative) Urine Glucose (UA) (Negative) mg/dL Urine Ketones (Negative) Urine Blood (Negative) Urine Nitrite (Negative) Urine Bilirubin (Negative) Urine Urobilinogen (0.2) mg/dL Ur Leukocyte Esterase (Negative) U Hyaline Cast (Auto) (0-2) /LPF Urine Microscopic RBC (0-5) /HPF Urine Microscopic WBC (0-5) /HPF Ur Epithelial Cells (None Seen) /HPF Urine Bacteria (None Seen) /HPF Urine Culture Reflexed (NO) Influenza Type A Ag (NEGATIVE) Influenza Type B Ag (NEGATIVE) RSV (PCR) (NEGATIVE) SARS-CoV-2 (PCR) (NEGATIVE) 03/29/25 Range/Units 20:20 WBC (3.98-10.04) x10^3/uL RBC (3.93-5.22) x10^6/uL Hgb (11.2-15.7) g/dL Hct (34.1-44.9) % MCV (79.4-94.8) fL MCH (25.6-32.2) pg MCHC (32.2-35.5) g/dL RDW (11.7-14.4) % Plt Count (182-369) x10^3/uL MPV (9.4-12.3) fL Gran % (34.0-71.1) % Immature Gran % (Auto) (0.001-0.429) % Nucleat RBC Rel Count (0.00-0.2) % Eos # (Auto) (0.04-0.36) x10^3/uL Immature Gran # (Auto) (0.001-0.031) x10^3u/L Absolute Lymphs (auto) (1.18-3.74) x10^3/uL Absolute Monos (auto) (0.24-0.86) x10^3/uL Absolute Nucleated RBC (0.00-0.012) x10^3u/L Lymphocytes % (19.3-51.7) % Monocytes % (4.7-12.5) % Eosinophils % (0.7-5.8) % Basophils % (0.1-1.2) % Absolute Granulocytes (1.56-6.13) x10^3/uL Basophils # (0.01-0.08) x10^3/uL D-Dimer (0.0-0.50) mg/L Sodium 138 (135-145) mmol/L Potassium 3.9 (3.5-5.1) mmol/L Chloride 104 (98-107) mmol/L Carbon Dioxide 25 (22-30) mmol/L Anion Gap 13.8 (5-15) MEQ/L BUN 12 (7-17) mg/dL Creatinine 0.79 (0.52-1.04) mg/dL Estimated GFR 83.0 ML/MIN Glucose 98 (74-106) mg/dL Lactic Acid (0.4-2.0) Calcium 9.5 (8.4-10.2) mg/dL Total Bilirubin 0.30 (0.2-1.3) mg/dL AST 30 (14-36) U/L ALT 31 (0-35) U/L Alkaline Phosphatase 113 (38-126) U/L Troponin I (0.000-0.033) ng/mL NT-Pro-B Natriuret Pep (<300) pg/mL Serum Total Protein 7.5 (6.3-8.2) g/dL Albumin 4.9 (3.5-5.0) g/dL Amylase 79 (30-110) U/L Lipase 136 (23-300) U/L Free T4 (0.78-2.19) ng/dL Urine Color (Yellow) Urine Appearance (Clear) Urine pH (4.6-8.0) Ur Specific [place] (1.005-1.030) Urine Protein (Negative) Urine Glucose (UA) (Negative) mg/dL Urine Ketones (Negative) Urine Blood (Negative) Urine Nitrite (Negative) Urine Bilirubin (Negative) Urine Urobilinogen (0.2) mg/dL Ur Leukocyte Esterase (Negative) U Hyaline Cast (Auto) (0-2) /LPF Urine Microscopic RBC (0-5) /HPF Urine Microscopic WBC (0-5) /HPF Ur Epithelial Cells (None Seen) /HPF Urine Bacteria (None Seen) /HPF Urine Culture Reflexed (NO) Influenza Type A Ag (NEGATIVE) Influenza Type B Ag (NEGATIVE) RSV (PCR) (NEGATIVE) SARS-CoV-2 (PCR) (NEGATIVE) - Progress Progress: improved, re-examined Air Movement: good Progress Note: 03/29/25 20:53 consulting with [facility] for CP transfer. No relief with NTG and starting drip now. 03/29/25 21:05 pain is improving down to 5 on NTG drip. 03/29/25 21:[address] Renner hospitalist at [facility] and he accepted in transfer pending a bed for Cardiac. 03/29/25 21:43 pain is down to 2 on NTG drip. arm pain is gone. 03/30/25 00:02 pt requiring critical care to control rate and keep BP up and we have needed IVF bolus and esmolol, and to back off on NTG. 03/30/25 00:24 Still waiting for a room at [facility]. 03/30/25 01:41 This will not be available until in the afternoon - so we consulted with our hospitalist Dr. Taylor and he has accepted in obs to take care of the pt until that room is available at [facility] and transport is also available. THe pt and family are in agreement with this. Blood Culture(s) Obtained: No Antibiotics given: No Discussed with Dr.: Chikis, Other (Dr. Renner at [facility]) Will see patient in: hospital (observation), hospital (full admit) Counseled pt/family regarding: lab results, diagnosis, need for follow-up, rad results Medical Desision Making - Independent Historian Additional History obtained from: Spouse - Discussion of managment Care discussed with:: specialist Reviewed:: Test results, Need for additional workup Agreed on:: Treatment plan, need for follow-up - Diagnostic Testing Diagnostic test were ordered, analyzed, and reviewed by me: Yes Radiological Interpretation: Interpreted by me - Risk of complications The pt has a mod risk of morbidity or mortality based on: Need for prescription drug management The pt has a high risk of morbidity or mortality based on: Decision regarding hospitilization or escalation of hosp level of care - Departure Departure Disposition: Observation Clinical Impression: Chest pain, Afib, CAD (coronary artery disease) Condition: Stable Critical Care Time: Yes Critical Care Time(excluding separately billable procedures): Critical 75-104 mins (critical care for CP unrelieved by NTG tab needing NTG drip. and esmolol to convert 90- minutes) Referrals: KULDEEP COE MD [Primary Care Provider, [facility]] - Follow up/PCP as directed
[2025-03-29] MEDS ORDERED: Nitrostat 0.4 MG (ED) SL ONE (20:32)
[2025-03-29] MEDS: Nitrostat 0.4 MG (ED) SL ONE (20:33)
[2025-03-29 20:37] LABS: BASOPHIL % 0.5 % (0.1-1.2); Basophil (Absolute #) 0.03 x10^3/uL (0.01-0.08); Eosinophil (Absolute #) 0.04 x10^3/uL (0.04-0.36); Hematocrit 40.5 % (34.1-44.9); Hemoglobin 13.9 g/dL (11.2-15.7); IMMATURE GRAN # 0.01 x10^3u/L (0.001-0.031); IMMATURE GRAN % 0.2 % (0.001-0.429); Lymphocyte (Absolute #) 2.11 x10^3/uL (1.18-3.74); Mean Corpuscular Hemoglobin 31.4 pg (25.6-32.2); Mean Corpuscular Hgb Concent. 34.3 g/dL (32.2-35.5); Monocyte (Absolute #) 0.59 x10^3/uL (0.24-0.86); NUCLEATED RBC # 0.00 x10^3u/L (0.00-0.012); NUCLEATED RBC % 0.0 % (0.00-0.2); Platelet Count 242 x10^3/uL (182-369); Red Blood Count 4.43 x10^6/uL (3.93-5.22); White Blood Count 6.3 x10^3/uL (3.98-10.04)
[2025-03-29 20:42] LABS: Calcium 9.5 mg/dL (8.4-10.2); Carbon Dioxide 25.0 mmol/L (22-30); Creatinine 1 0.79 mg/dL (0.52-1.04); EST GLOMERULAR FILTRATION RATE 83.0 ML/MIN; Glucose 98.0 mg/dL (74-106); Potassium 3.9 mmol/L (3.5-5.1); SGOT/AST 30.0 U/L (14-36); SGPT/ALT 31.0 U/L (0-35); Total Protein 7.5 g/dL (6.3-8.2)
--- NOTE | 2025-03-29 20:46 | XRAY ---
Indication: Chest pain. Comparison: April 26, 2024 Portable chest again demonstrates minimal left base fibrosis/scarring. Remaining heart and lungs again normal. Bony thorax intact with minimal dextroscoliosis. No new/acute findings.
[2025-03-29 21:16] LABS: INFLUENZA A NEGATIVE (NEGATIVE); INFLUENZA B NEGATIVE (NEGATIVE); RESPIRATORY SYNCTIAL VIRUS NEGATIVE (NEGATIVE); SARS-CoV-2 Xpert Express NEGATIVE (NEGATIVE)
[2025-03-29] MEDS ORDERED: BABY ASPIRIN 81 MG CHEW ONE (21:41)
[2025-03-29] MEDS ORDERED: Ntg 0.2MG/Ml in D5W GLASS*** 250 ML IV ONE (21:41)
[2025-03-29] MEDS: Ntg 0.2MG/Ml in D5W GLASS*** 250 ML IV PRN (21:42)
[2025-03-29] MEDS: BABY ASPIRIN 81 MG CHEW PO ONE (21:42)
[2025-03-29 23:29] LABS: Glucose, Urine Negative (Negative); Protein,Urine Dip Negative (Negative); RBC 0-2 /HPF (0-5); WBC 0-2 /HPF (0-5)
[2025-03-29] MEDS ORDERED: Zofran 4 MG/2 ML VIAL ONE (23:48)
[2025-03-29] MEDS: Zofran 4 MG/2 ML VIAL IV ONE (23:49)
[2025-03-30] MEDS ORDERED: Ativan 1 MG ONE (00:05)
[2025-03-30] MEDS: BREVIBLOC 100 MG/10 ML IV ONE (00:05)
[2025-03-30] MEDS: Ativan 1 MG PO ONE (00:06)
--- NOTE | 2025-03-30 00:08 | XRAY ---
CLINICAL HISTORY: chest pain COMPARISON: No prior studies for comparison. TECHNIQUE: Contiguous axial CT images of the chest were acquired without administration of intravenous contrast. Coronal and sagittal reconstructions were obtained. One of the following dose reduction techniques was utilized for this exam: Automated exposure control, adjustment of the mA and/or kV according to patient size, use of iterative reconstruction. FINDINGS: Lungs: No evidence of consolidation, collapse, or focal lesions. No pulmonary nodules or masses are identified. No evidence of interstitial lung disease or emphysema. There is minimal ground-glass density at the posterior subpleural aspects of both lower lung lobes, likely representing mild postural congestion. A thin atelectatic band is seen at the left lingular lobe, likely a sequela of old infection. A small cyst measuring 8 mm is seen at the basal aspect of the right lower lung lobe No pleural effusion or pleural thickening. Mediastinum: The mediastinum is normal in size and contour. No mediastinal mass or abnormal lymphadenopathy. The heart size is within normal limits. A small calcific subcarinal lymph node is seen, likely a sequela of an old granuloma. Hilar Structures: The hilar structures appear normal without enlargement or abnormality. Trachea and Main Bronchi: The trachea and main bronchi are patent without evidence of obstruction or abnormality. Chest Wall: The chest wall is unremarkable, with no evidence of soft tissue or bony abnormalities. Upper Abdomen: Tiny calcific foci are seen at the visualized portions of the liver and spleen, likely old granulomas. Colonic interposition between the liver and the anterior abdominal wall represents the Chila[place] sign. Bones: Visualized osseous structures are normal, with no evidence of fracture. A vertebral body hemangioma is seen at T10. IMPRESSION: 1. No acute chest abnormality. 2. No evidence of consolidation, collapse, or focal lesions. 3. Mild posterior subpleural postural congestion. 4. A thin atelectatic band is seen at the left lingular lobe, likely a sequela of old infection. Electronically Signed by: Jorge Gregory MD. (03/30/2025 00:05:57 EDT)
--- NOTE | 2025-03-30 01:32 | PCM.HP ---
History of Present Illness - Chief Complaint Chief Complaint: chest pain History of Present Illness: is a 64 year old female with PMH of CAD/CT status post stent who atrial fibrillation status post ablation (on Eliquis), Hernandes's esophagus, hypertension, hypothyroidism, hyperlipidemia, IBS presented to the ED complaining of chest pain that was substernal, radiating to the left arm and left jaw, described as fullness/pressure/tightness, initially was a 6 out of 10 in intensity but improved to 2 out of 10 with nitroglycerin drip. Pain has been occurring intermittently for the past several days but became constant around 4 PM yesterday. Initial troponins have been negative but she was noted to have ST depression in the lateral leads. Her blood pressure did decrease slightly with nitroglycerin drip which has been stopped. She was having associated shortness of breath and fatigue but no nausea or vomiting. She was also noted to be in A- fib with the RVR briefly but heart rate improved with esmolol. She was accepted to transfer to [facility] to be seen by cardiology but a bed is not currently available. Will admit for observation until she can be transferred. - Review of Systems Constitutional: Fatigue Eyes: No Symptoms Ears, Nose, & Throat: No Symptoms Respiratory: Short Of Breath Cardiac: Chest Pain, Palpitations Abdominal/Gastrointestinal: No Symptoms Genitourinary Symptoms: No Symptoms Musculoskeletal: No Symptoms Skin: No Symptoms Neurological: No Symptoms Psychological: No Symptoms Endocrine: No Symptoms Hematologic/Lymphatic: No Symptoms Immunological/Allergic: No Symptoms All Other Systems: Reviewed and Negative Medications & Allergies Home Medications: Home Medication List ALPRAZolam 0.25 MG [xanAX 0.25 MG] 0.25 mg PO HS 03/22/24 [History Confirmed 03/30/25] PANTOPRAZOLE 40 mg Tablet [Protonix 40MG Tablet] 40 mg PO HS 03/22/24 [History Confirmed 03/30/25] Paroxetine HCl 20 mg [Paxil 20 MG] 10 mg PO DAILY 03/22/24 [History Confirmed 03/30/25] Potassium Chloride 10 meq PO HS 03/22/24 [History Confirmed 03/30/25] Sucralfate 1 gm [Carafate 1 GM] 1 g PO DAILY 03/22/24 [History Confirmed 03/30/25] Lisinopril 5 mg [Zestril 5 MG] 5 mg PO DAILY 04/26/24 [History Confirmed 03/30/25] Apixaban [Eliquis 2.5 mg Tablet] 5 mg PO BID 30 Days #60 tablet 04/27/24 [Rx Confirmed 03/30/25] Metoprolol Tartrate 25 mg [Lopressor 25MG Tab] 25 mg PO BID 30 Days #60 tablet 04/27/24 [Rx Confirmed 03/30/25] Clopidogrel Bisulfate [Clopidogrel] 75 mg PO DAILY 03/29/25 [History Confirmed 03/30/25] Levothyroxine Sodium 88 Mcg [Synthroid 88 Mcg] 77 mcg PO DAILY 03/29/25 [History Confirmed 03/30/25] dilTIAZem HCL [Diltiazem 24Hr ER] 120 mg PO DAILY 03/29/25 [History Confirmed 03/30/25] Allergies/Adverse Reactions: Allergies Allergy/AdvReac Type Severity Reaction Status Date / Time Penicillins AdvReac Hives Verified 04/26/24 16:13 Sulfa (Sulfonamide AdvReac Hives Verified 04/26/24 16:13 Antibiotics) - Past Medical History Past Medical History: Yes Neurological History: No Pertinent History ENT History: No Pertinent History Cardiac History: High Cholesterol, Hypertension, Other Respiratory History: No Pertinent History Endocrine Medical History: Hypothyroidism Musculoskelatal History: No Pertinent History GI Medical History: Irritable Bowel, Other History: No Pertinent History Pyscho-Social History: Anxiety Reproductive Disorders: No Pertinent History Comment: barretts esophagus, NSTEMI - Past Surgical History Past Surgical History: Yes Neuro Surgical History: No Pertinent History Cardiac History: Cardiac Catheterization, Cardiac Stent Respiratory Surgery: No Pertinent History GI Surgical History: Other Genitourinary Surgical Hx: No Pertinent History Musculskeletal Surgical Hx: No Pertinent History Female Surgical History: No Pertinent History Other Surgical History: cystocele, rectocele, colonoscopy, stent placed in03/23/24 Significant Family History: heart disease (maternal/paternal ) - Social History Smoking Status: Never smoker Exposure to second hand smoke: No Alcohol: None Drug Use: none - Social Determinants of Health Will the patient participate in the screening: Yes Do you worry about a steady place to live?: No Do you have any problems with any of the following?: No known problems In the past 12 months,have you had to go without utilities?: No Have you or anyone in your house had to go without enough: No Transportation Issues: No Has anyone in your support network made you feel unsafe?: No Does the patient want assistance with any of the above?: No - Physical Exam Vital Signs: Vital Signs - 24 hr Temp Pulse Pulse Resp BP BP Pulse Ox 03/30/25 00:26 97 03/30/25 00:00 107 H 12 113/80 97 03/29/25 23:53 120 H 16 146/92 98 03/29/25 23:39 117 H 17 86/63 97 03/29/25 23:33 134 H 17 98 03/29/25 23:01 128 H 13 105/64 96 03/29/25 22:42 120 H 14 86/63 03/29/25 22:30 119 H 17 95/69 95 03/29/25 22:00 117 H 16 103/64 95 03/29/25 21:42 101 H 19 111/72 03/29/25 21:31 100 H 20 111/72 96 03/29/25 21:01 107 H 11 L 108/80 96 03/29/25 20:31 118 H 13 127/103 96 03/29/25 20:16 117 H 20 155/93 95 03/29/25 20:15 97.1 F 108 H 108 H 18 155/93 97 General Appearance: no apparent distress Neurologic Exam: alert, oriented x 3, cooperative Eye Exam: PERRL/EOMI Ears, Nose, Throat Exam: moist mucous membranes Neck Exam: normal inspection Respiratory Exam: normal breath sounds, lungs clear Cardiovascular Exam: regular rate/rhythm, normal heart sounds Gastrointestinal/Abdomen Exam: soft, normal bowel sounds Extremity Exam: normal inspection Skin Exam: normal color Results - Labs Lab/Micro Results: Lab Results-Last 24 Hours 03/29/25 03/29/25 03/29/25 Range/Units 20:20 20:20 20:20 WBC (3.98-10.04) x10^3/uL RBC (3.93-5.22) x10^6/uL Hgb (11.2-15.7) g/dL Hct (34.1-44.9) % MCV (79.4-94.8) fL MCH (25.6-32.2) pg MCHC (32.2-35.5) g/dL RDW (11.7-14.4) % Plt Count (182-369) x10^3/uL MPV (9.4-12.3) fL Gran % (34.0-71.1) % Immature Gran % (Auto) (0.001-0.429) % Nucleat RBC Rel Count (0.00-0.2) % Eos # (Auto) (0.04-0.36) x10^3/uL Immature Gran # (Auto) (0.001-0.031) x10^3u/L Absolute Lymphs (auto) (1.18-3.74) x10^3/uL Absolute Monos (auto) (0.24-0.86) x10^3/uL Absolute Nucleated RBC (0.00-0.012) x10^3u/L Lymphocytes % (19.3-51.7) % Monocytes % (4.7-12.5) % Eosinophils % (0.7-5.8) % Basophils % (0.1-1.2) % Absolute Granulocytes (1.56-6.13) x10^3/uL Basophils # (0.01-0.08) x10^3/uL D-Dimer < 0.19 (0.0-0.50) mg/L Sodium 138 (135-145) mmol/L Potassium 3.9 (3.5-5.1) mmol/L Chloride 104 (98-107) mmol/L Carbon Dioxide 25 (22-30) mmol/L Anion Gap 13.8 (5-15) MEQ/L BUN 12 (7-17) mg/dL Creatinine 0.79 (0.52-1.04) mg/dL Estimated GFR 83.0 ML/MIN Glucose 98 (74-106) mg/dL Lactic Acid (0.4-2.0) Calcium 9.5 (8.4-10.2) mg/dL Total Bilirubin 0.30 (0.2-1.3) mg/dL AST 30 (14-36) U/L ALT 31 (0-35) U/L Alkaline Phosphatase 113 (38-126) U/L Troponin I < 0.012 (0.000-0.033) ng/mL NT-Pro-B Natriuret Pep (<300) pg/mL Serum Total Protein 7.5 (6.3-8.2) g/dL Albumin 4.9 (3.5-5.0) g/dL Amylase 79 (30-110) U/L Lipase 136 (23-300) U/L Free T4 (0.78-2.19) ng/dL Urine Color (Yellow) Urine Appearance (Clear) Urine pH (4.6-8.0) Ur Specific Olivia (1.005-1.030) Urine Protein (Negative) Urine Glucose (UA) (Negative) mg/dL Urine Ketones (Negative) Urine Blood (Negative) Urine Nitrite (Negative) Urine Bilirubin (Negative) Urine Urobilinogen (0.2) mg/dL Ur Leukocyte Esterase (Negative) U Hyaline Cast (Auto) (0-2) /LPF Urine Microscopic RBC (0-5) /HPF Urine Microscopic WBC (0-5) /HPF Ur Epithelial Cells (None Seen) /HPF Urine Bacteria (None Seen) /HPF Urine Culture Reflexed (NO) Influenza Type A Ag (NEGATIVE) Influenza Type B Ag (NEGATIVE) RSV (PCR) (NEGATIVE) SARS-CoV-2 (PCR) (NEGATIVE) 03/29/25 03/29/25 03/29/25 Range/Units 20:20 20:20 20:25 WBC 6.3 (3.98-10.04) x10^3/uL RBC 4.43 (3.93-5.22) x10^6/uL Hgb 13.9 (11.2-15.7) g/dL Hct 40.5 (34.1-44.9) % MCV 91.4 (79.4-94.8) fL MCH 31.4 (25.6-32.2) pg MCHC 34.3 (32.2-35.5) g/dL RDW 11.9 (11.7-14.4) % Plt Count 242 (182-369) x10^3/uL MPV 10.6 (9.4-12.3) fL Gran % 56.0 (34.0-71.1) % Immature Gran % (Auto) 0.2 (0.001-0.429) % Nucleat RBC Rel Count 0.0 (0.00-0.2) % Eos # (Auto) 0.04 (0.04-0.36) x10^3/uL Immature Gran # (Auto) 0.01 (0.001-0.031) x10^3u/L Absolute Lymphs (auto) 2.11 (1.18-3.74) x10^3/uL Absolute Monos (auto) 0.59 (0.24-0.86) x10^3/uL Absolute Nucleated RBC 0.00 (0.00-0.012) x10^3u/L Lymphocytes % 33.4 (19.3-51.7) % Monocytes % 9.3 (4.7-12.5) % Eosinophils % 0.6 L (0.7-5.8) % Basophils % 0.5 (0.1-1.2) % Absolute Granulocytes 3.54 (1.56-6.13) x10^3/uL Basophils # 0.03 (0.01-0.08) x10^3/uL D-Dimer (0.0-0.50) mg/L Sodium (135-145) mmol/L Potassium (3.5-5.1) mmol/L Chloride (98-107) mmol/L Carbon Dioxide (22-30) mmol/L Anion Gap (5-15) MEQ/L BUN (7-17) mg/dL Creatinine (0.52-1.04) mg/dL Estimated GFR ML/MIN Glucose (74-106) mg/dL Lactic Acid (0.4-2.0) Calcium (8.4-10.2) mg/dL Total Bilirubin (0.2-1.3) mg/dL AST (14-36) U/L ALT (0-35) U/L Alkaline Phosphatase (38-126) U/L Troponin I (0.000-0.033) ng/mL NT-Pro-B Natriuret Pep 204 (<300) pg/mL Serum Total Protein (6.3-8.2) g/dL Albumin (3.5-5.0) g/dL Amylase (30-110) U/L Lipase (23-300) U/L Free T4 1.34 (0.78-2.19) ng/dL Urine Color (Yellow) Urine Appearance (Clear) Urine pH (4.6-8.0) Ur Specific Olivia (1.005-1.030) Urine Protein (Negative) Urine Glucose (UA) (Negative) mg/dL Urine Ketones (Negative) Urine Blood (Negative) Urine Nitrite (Negative) Urine Bilirubin (Negative) Urine Urobilinogen (0.2) mg/dL Ur Leukocyte Esterase (Negative) U Hyaline Cast (Auto) (0-2) /LPF Urine Microscopic RBC (0-5) /HPF Urine Microscopic WBC (0-5) /HPF Ur Epithelial Cells (None Seen) /HPF Urine Bacteria (None Seen) /HPF Urine Culture Reflexed (NO) Influenza Type A Ag (NEGATIVE) Influenza Type B Ag (NEGATIVE) RSV (PCR) (NEGATIVE) SARS-CoV-2 (PCR) (NEGATIVE) 03/29/25 03/29/25 03/29/25 Range/Units 20:38 20:40 23:22 WBC (3.98-10.04) x10^3/uL RBC (3.93-5.22) x10^6/uL Hgb (11.2-15.7) g/dL Hct (34.1-44.9) % MCV (79.4-94.8) fL MCH (25.6-32.2) pg MCHC (32.2-35.5) g/dL RDW (11.7-14.4) % Plt Count (182-369) x10^3/uL MPV (9.4-12.3) fL Gran % (34.0-71.1) % Immature Gran % (Auto) (0.001-0.429) % Nucleat RBC Rel Count (0.00-0.2) % Eos # (Auto) (0.04-0.36) x10^3/uL Immature Gran # (Auto) (0.001-0.031) x10^3u/L Absolute Lymphs (auto) (1.18-3.74) x10^3/uL Absolute Monos (auto) (0.24-0.86) x10^3/uL Absolute Nucleated RBC (0.00-0.012) x10^3u/L Lymphocytes % (19.3-51.7) % Monocytes % (4.7-12.5) % Eosinophils % (0.7-5.8) % Basophils % (0.1-1.2) % Absolute Granulocytes (1.56-6.13) x10^3/uL Basophils # (0.01-0.08) x10^3/uL D-Dimer (0.0-0.50) mg/L Sodium (135-145) mmol/L Potassium (3.5-5.1) mmol/L Chloride (98-107) mmol/L Carbon Dioxide (22-30) mmol/L Anion Gap (5-15) MEQ/L BUN (7-17) mg/dL Creatinine (0.52-1.04) mg/dL Estimated GFR ML/MIN Glucose (74-106) mg/dL Lactic Acid 0.9 (0.4-2.0) Calcium (8.4-10.2) mg/dL Total Bilirubin (0.2-1.3) mg/dL AST (14-36) U/L ALT (0-35) U/L Alkaline Phosphatase (38-126) U/L Troponin I (0.000-0.033) ng/mL NT-Pro-B Natriuret Pep (<300) pg/mL Serum Total Protein (6.3-8.2) g/dL Albumin (3.5-5.0) g/dL Amylase (30-110) U/L Lipase (23-300) U/L Free T4 (0.78-2.19) ng/dL Urine Color Yellow (Yellow) Urine Appearance Clear (Clear) Urine pH 6.5 (4.6-8.0) Ur Specific Olivia <=1.005 (1.005-1.030) Urine Protein Negative (Negative) Urine Glucose (UA) Negative (Negative) mg/dL Urine Ketones Negative (Negative) Urine Blood Negative (Negative) Urine Nitrite Negative (Negative) Urine Bilirubin Negative (Negative) Urine Urobilinogen 0.2 (0.2) mg/dL Ur Leukocyte Esterase Negative (Negative) U Hyaline Cast (Auto) NONE SEEN (0-2) /LPF Urine Microscopic RBC 0-2 (0-5) /HPF Urine Microscopic WBC 0-2 (0-5) /HPF Ur Epithelial Cells None Seen (None Seen) /HPF Urine Bacteria None Seen (None Seen) /HPF Urine Culture Reflexed NO (NO) Influenza Type A Ag NEGATIVE (NEGATIVE) Influenza Type B Ag NEGATIVE (NEGATIVE) RSV (PCR) NEGATIVE (NEGATIVE) SARS-CoV-2 (PCR) NEGATIVE (NEGATIVE) 03/30/25 Range/Units 01:00 WBC (3.98-10.04) x10^3/uL RBC (3.93-5.22) x10^6/uL Hgb (11.2-15.7) g/dL Hct (34.1-44.9) % MCV (79.4-94.8) fL MCH (25.6-32.2) pg MCHC (32.2-35.5) g/dL RDW (11.7-14.4) % Plt Count (182-369) x10^3/uL MPV (9.4-12.3) fL Gran % (34.0-71.1) % Immature Gran % (Auto) (0.001-0.429) % Nucleat RBC Rel Count (0.00-0.2) % Eos # (Auto) (0.04-0.36) x10^3/uL Immature Gran # (Auto) (0.001-0.031) x10^3u/L Absolute Lymphs (auto) (1.18-3.74) x10^3/uL Absolute Monos (auto) (0.24-0.86) x10^3/uL Absolute Nucleated RBC (0.00-0.012) x10^3u/L Lymphocytes % (19.3-51.7) % Monocytes % (4.7-12.5) % Eosinophils % (0.7-5.8) % Basophils % (0.1-1.2) % Absolute Granulocytes (1.56-6.13) x10^3/uL Basophils # (0.01-0.08) x10^3/uL D-Dimer (0.0-0.50) mg/L Sodium (135-145) mmol/L Potassium (3.5-5.1) mmol/L Chloride (98-107) mmol/L Carbon Dioxide (22-30) mmol/L Anion Gap (5-15) MEQ/L BUN (7-17) mg/dL Creatinine (0.52-1.04) mg/dL Estimated GFR ML/MIN Glucose (74-106) mg/dL Lactic Acid (0.4-2.0) Calcium (8.4-10.2) mg/dL Total Bilirubin (0.2-1.3) mg/dL AST (14-36) U/L ALT (0-35) U/L Alkaline Phosphatase (38-126) U/L Troponin I < 0.012 (0.000-0.033) ng/mL NT-Pro-B Natriuret Pep (<300) pg/mL Serum Total Protein (6.3-8.2) g/dL Albumin (3.5-5.0) g/dL Amylase (30-110) U/L Lipase (23-300) U/L Free T4 (0.78-2.19) ng/dL Urine Color (Yellow) Urine Appearance (Clear) Urine pH (4.6-8.0) Ur Specific Olivia (1.005-1.030) Urine Protein (Negative) Urine Glucose (UA) (Negative) mg/dL Urine Ketones (Negative) Urine Blood (Negative) Urine Nitrite (Negative) Urine Bilirubin (Negative) Urine Urobilinogen (0.2) mg/dL Ur Leukocyte Esterase (Negative) U Hyaline Cast (Auto) (0-2) /LPF Urine Microscopic RBC (0-5) /HPF Urine Microscopic WBC (0-5) /HPF Ur Epithelial Cells (None Seen) /HPF Urine Bacteria (None Seen) /HPF Urine Culture Reflexed (NO) Influenza Type A Ag (NEGATIVE) Influenza Type B Ag (NEGATIVE) RSV (PCR) (NEGATIVE) SARS-CoV-2 (PCR) (NEGATIVE) - Radiology Impressions Radiology Exams & Impressions: Radiology Procedures Category Date Time Status CHEST 1 VIEW (PORTABLE) Stat Exams 03/29/25 20:24 Completed CHEST WITHOUT CONTRAST [CT] Stat Exams 03/29/25 22:03 Completed Assessment/Plan (1) Unstable angina Current Visit: Yes Status: Acute Assessment & Plan: Continue nitro ggt Start IV fluids for BP support Aspirin, Plavix Could not tolerate statins due to side effects Start heparin ggt Monitor on telemetry and trend troponin (2) Atrial fibrillation with rapid ventricular response Current Visit: Yes Status: Acute Assessment & Plan: Continue metoprolol and diltiazem Will be anticoagulated with heparin drip Keep Mg > 2 and K+ > 4 Cardiology to see at [facility] Code(s): I48.91 - UNSPECIFIED ATRIAL FIBRILLATION (3) Hernandes esophagus Current Visit: Yes Status: Acute Qualifiers: Hernandes's esophagus type: with dysplasia of unspecified degree Qualified Code(s): K22.719 - Hernandes's esophagus with dysplasia, unspecified; K22.71 - Hernandes's esophagus with dysplasia Assessment & Plan: Continue pantoprazole and sucralfate Code(s): K22.70 - HERNANDES'S ESOPHAGUS WITHOUT DYSPLASIA (4) Anxiety Current Visit: No Status: Chronic Assessment & Plan: Continue paroxetine and alprazolam Code(s): F41.9 - ANXIETY DISORDER, UNSPECIFIED (5) HTN (hypertension) Current Visit: No Status: Chronic Qualifiers: Hypertension type: primary hypertension Qualified Code(s): I10 - Essential (primary) hypertension Assessment & Plan: Continue metoprolol and lisinopril - hold for SBP < 90 Code(s): I10 - ESSENTIAL (PRIMARY) HYPERTENSION (6) Hypothyroid Current Visit: No Status: Chronic Qualifiers: Hypothyroidism type: unspecified Qualified Code(s): E03.9 - Hypothyroidism, unspecified Assessment & Plan: Continue levothyroxine Code(s): E03.9 - HYPOTHYROIDISM, UNSPECIFIED Telemedicine Encounter - Telemedicine Encounter Telemedicine Encounter: NPO for possible cath Full code Plan of care discussed with RN and patient "The entirety of this encounter was performed via Telemedicine" This visit was performed using real-time audio and video connection between my location and thepatients locationwith the assistance of a surrogateat the patients location. Written or verbal consent was obtained from the patient/guardian to perform this [facility]. Any patient questions regarding the telemedicine interaction were answered.
[2025-03-30] MEDS ORDERED: TYLENOL 325 MG PO PRN ×2 (01:45→03:00)
[2025-03-30] MEDS ORDERED: Nitrostat 0.4 MG Tablet SL PRN (03:00)
[2025-03-30 03:20] LABS: Hematocrit 34.0 % (34.1-44.9); Hemoglobin 11.3 g/dL (11.2-15.7); Mean Corpuscular Hemoglobin 31.3 pg (25.6-32.2); Mean Corpuscular Hgb Concent. 33.2 g/dL (32.2-35.5); Platelet Count 165 x10^3/uL (182-369); Red Blood Count 3.61 x10^6/uL (3.93-5.22); White Blood Count 4.4 x10^3/uL (3.98-10.04)
[2025-03-30] MEDS: HEPARIN 5000 UNITS/0.5 ML (HIGH RISK MED) IV STA ×2 (03:29→04:50)
[2025-03-30 03:33] LABS: INR 1.04 (0.8-3.0); PROTIME 11.6 SECONDS (9.4-12.5); PTT 28.9 SECONDS (25.1-36.5)
[2025-03-30] MEDS: Heparin 25,000 units/D5W: USE ORDER SET PROTO 25,000 UNITS/250 ML BAG IV SCH (03:35)
[2025-03-30 04:31] LABS: Calcium 8.2 mg/dL (8.4-10.2); Carbon Dioxide 21.0 mmol/L (22-30); Creatinine 1 0.69 mg/dL (0.52-1.04); EST GLOMERULAR FILTRATION RATE 96.3 ML/MIN; Glucose 103.0 mg/dL (74-106); Potassium 4.1 mmol/L (3.5-5.1); SGOT/AST 21.0 U/L (14-36); SGPT/ALT 23.0 U/L (0-35); Total Protein 5.9 g/dL (6.3-8.2)
[2025-03-30] MEDS: LIPITOR 40MG PO STA (04:50)
[2025-03-30 08:38] VITALS: TEMP 98.1
[2025-03-30 09:08] VITALS: PULSE 71; RESP 15; O2SAT 95
--- NOTE | 2025-03-30 09:36 | PCM.DS ---
Discharge Summary Date of Admission: 03/30/25 01:50 Date of Discharge: 03/30/25 Admitting Physician: CLIFTON ATWOOD MD Primary Care Provider: KULDEEP OCE Allergies Allergies Penicillins Adverse Reaction (Verified 04/26/24 16:13) [facility] Sulfa (Sulfonamide Antibiotics) Adverse Reaction (Verified 04/26/24 16:13) [facility] Summary - Hospital Course Hospital Course: Ms. Denise is a 64-year-old female with a past medical history significant for coronary artery disease with prior myocardial infarction status post stent placement, atrial fibrillation status post ablation (on chronic anticoagulation with Eliquis), Barretts esophagus, hypertension, hypothyroidism, hyperlipidemia, and irritable bowel syndrome. She presented to the emergency department with substernal chest pain radiating to the left arm and jaw, described as a fullness and tightness, initially rated 6/10, which improved to 2/10 with initiation of a nitroglycerin drip. She reported intermittent chest discomfort over the prior several days, becoming constant the day before admission. Associated symptoms included shortness of breath and fatigue, without nausea or vomiting. On arrival, ECG demonstrated ST-segment depression in the lateral leads, consistent with ischemia, and laboratory testing showed negative serial troponins. Blood pressure decreased slightly while on nitroglycerin infusion, prompting discontinuation of the drip. During observation, she developed atrial fibrillation with rapid ventricular response, which improved following IV esmolol administration. She required IV fluid bolus to maintain mean arterial pressure, and telemetry monitoring continued throughout her stay. Chest X-ray revealed no acute cardiopulmonary abnormality, though mild posterior subpleural congestion was noted. A follow-up CT chest demonstrated no evidence of consolidation, collapse, or focal lesions, with findings limited to an old left lingular scar and scattered granulomas. Given ongoing chest pain with ischemic ECG changes despite negative troponins, she was diagnosed with unstable angina and started on heparin infusion, dual antiplatelet therapy (aspirin and clopidogrel), and rate control agents. Due to the complexity of her presentation and need for potential catheterization, she was accepted for transfer to a tertiary center for cardiology evaluation and management. She remained hemodynamically stable at time of transfer. Patient is transferring to a higher level of care at [facility] for continued management of unstable angina and evaluation by cardiology for possible ischemic intervention. She remains chest pain-free, hemodynamically stable, and alert at the time of transfer. All pertinent imaging and lab results have been forwarded to the accepting facility. I spent 35 minutes [id number] with the patient on the day of discharge performing discharge exam, discussing hospital stay and discharge instructions with patient and caregivers, preparation of discharge records, prescriptions & referral forms and addressing any questions/concerns the patient had as documented above. - Vitals & Intake/Output Vital Signs: Vital Signs Temperature 98.1 F 03/30/25 08:00 Pulse Rate 71 03/30/25 09:00 Respiratory Rate 15 03/30/25 09:00 Blood Pressure 133/78 03/30/25 09:00 O2 Sat by Pulse Oximetry 95 03/30/25 09:00 Intake & Output: Intake & Output 03/27/25 03/28/25 03/29/25 03/30/25 11:59 11:59 11:59 11:59 Weight 56.2 kg - Lab Result Diagrams: 03/30/25 03:16 03/30/25 03:16 Lab Results-Last 24 Hrs: Lab Results-Last 24 Hours 03/29/25 03/29/25 03/29/25 Range/Units 20:20 20:20 20:20 WBC (3.98-10.04) x10^3/uL RBC (3.93-5.22) x10^6/uL Hgb (11.2-15.7) g/dL Hct (34.1-44.9) % MCV (79.4-94.8) fL MCH (25.6-32.2) pg MCHC (32.2-35.5) g/dL RDW (11.7-14.4) % Plt Count (182-369) x10^3/uL MPV (9.4-12.3) fL Gran % (34.0-71.1) % Immature Gran % (Auto) (0.001-0.429) % Nucleat RBC Rel Count (0.00-0.2) % Eos # (Auto) (0.04-0.36) x10^3/uL Immature Gran # (Auto) (0.001-0.031) x10^3u/L Absolute Lymphs (auto) (1.18-3.74) x10^3/uL Absolute Monos (auto) (0.24-0.86) x10^3/uL Absolute Nucleated RBC (0.00-0.012) x10^3u/L Lymphocytes % (19.3-51.7) % Monocytes % (4.7-12.5) % Eosinophils % (0.7-5.8) % Basophils % (0.1-1.2) % Absolute Granulocytes (1.56-6.13) x10^3/uL Basophils # (0.01-0.08) x10^3/uL PT (9.4-12.5) SECONDS INR (0.8-3.0) APTT (25.1-36.5) SECONDS D-Dimer < 0.19 (0.0-0.50) mg/L Sodium 138 (135-145) mmol/L Potassium 3.9 (3.5-5.1) mmol/L Chloride 104 (98-107) mmol/L Carbon Dioxide 25 (22-30) mmol/L Anion Gap 13.8 (5-15) MEQ/L BUN 12 (7-17) mg/dL Creatinine 0.79 (0.52-1.04) mg/dL Estimated GFR 83.0 ML/MIN Glucose 98 (74-106) mg/dL Lactic Acid (0.4-2.0) Calcium 9.5 (8.4-10.2) mg/dL Magnesium (1.6-2.3) mg/dL Total Bilirubin 0.30 (0.2-1.3) mg/dL AST 30 (14-36) U/L ALT 31 (0-35) U/L Alkaline Phosphatase 113 (38-126) U/L Troponin I < 0.012 (0.000-0.033) ng/mL NT-Pro-B Natriuret Pep (<300) pg/mL Serum Total Protein 7.5 (6.3-8.2) g/dL Albumin 4.9 (3.5-5.0) g/dL Amylase 79 (30-110) U/L Lipase 136 (23-300) U/L Free T4 (0.78-2.19) ng/dL Urine Color (Yellow) Urine Appearance (Clear) Urine pH (4.6-8.0) Ur Specific [place] (1.005-1.030) Urine Protein (Negative) Urine Glucose (UA) (Negative) mg/dL Urine Ketones (Negative) Urine Blood (Negative) Urine Nitrite (Negative) Urine Bilirubin (Negative) Urine Urobilinogen (0.2) mg/dL Ur Leukocyte Esterase (Negative) U Hyaline Cast (Auto) (0-2) /LPF Urine Microscopic RBC (0-5) /HPF Urine Microscopic WBC (0-5) /HPF Ur Epithelial Cells (None Seen) /HPF Urine Bacteria (None Seen) /HPF Urine Culture Reflexed (NO) Influenza Type A Ag (NEGATIVE) Influenza Type B Ag (NEGATIVE) RSV (PCR) (NEGATIVE) SARS-CoV-2 (PCR) (NEGATIVE) 03/29/25 03/29/25 03/29/25 Range/Units 20:20 20:20 20:25 WBC 6.3 (3.98-10.04) x10^3/uL RBC 4.43 (3.93-5.22) x10^6/uL Hgb 13.9 (11.2-15.7) g/dL Hct 40.5 (34.1-44.9) % MCV 91.4 (79.4-94.8) fL MCH 31.4 (25.6-32.2) pg MCHC 34.3 (32.2-35.5) g/dL RDW 11.9 (11.7-14.4) % Plt Count 242 (182-369) x10^3/uL MPV 10.6 (9.4-12.3) fL Gran % 56.0 (34.0-71.1) % Immature Gran % (Auto) 0.2 (0.001-0.429) % Nucleat RBC Rel Count 0.0 (0.00-0.2) % Eos # (Auto) 0.04 (0.04-0.36) x10^3/uL Immature Gran # (Auto) 0.01 (0.001-0.031) x10^3u/L Absolute Lymphs (auto) 2.11 (1.18-3.74) x10^3/uL Absolute Monos (auto) 0.59 (0.24-0.86) x10^3/uL Absolute Nucleated RBC 0.00 (0.00-0.012) x10^3u/L Lymphocytes % 33.4 (19.3-51.7) % Monocytes % 9.3 (4.7-12.5) % Eosinophils % 0.6 L (0.7-5.8) % Basophils % 0.5 (0.1-1.2) % Absolute Granulocytes 3.54 (1.56-6.13) x10^3/uL Basophils # 0.03 (0.01-0.08) x10^3/uL PT (9.4-12.5) SECONDS INR (0.8-3.0) APTT (25.1-36.5) SECONDS D-Dimer (0.0-0.50) mg/L Sodium (135-145) mmol/L Potassium (3.5-5.1) mmol/L Chloride (98-107) mmol/L Carbon Dioxide (22-30) mmol/L Anion Gap (5-15) MEQ/L BUN (7-17) mg/dL Creatinine (0.52-1.04) mg/dL Estimated GFR ML/MIN Glucose (74-106) mg/dL Lactic Acid (0.4-2.0) Calcium (8.4-10.2) mg/dL Magnesium (1.6-2.3) mg/dL Total Bilirubin (0.2-1.3) mg/dL AST (14-36) U/L ALT (0-35) U/L Alkaline Phosphatase (38-126) U/L Troponin I (0.000-0.033) ng/mL NT-Pro-B Natriuret Pep 204 (<300) pg/mL Serum Total Protein (6.3-8.2) g/dL Albumin (3.5-5.0) g/dL Amylase (30-110) U/L Lipase (23-300) U/L Free T4 1.34 (0.78-2.19) ng/dL Urine Color (Yellow) Urine Appearance (Clear) Urine pH (4.6-8.0) Ur Specific [place] (1.005-1.030) Urine Protein (Negative) Urine Glucose (UA) (Negative) mg/dL Urine Ketones (Negative) Urine Blood (Negative) Urine Nitrite (Negative) Urine Bilirubin (Negative) Urine Urobilinogen (0.2) mg/dL Ur Leukocyte Esterase (Negative) U Hyaline Cast (Auto) (0-2) /LPF Urine Microscopic RBC (0-5) /HPF Urine Microscopic WBC (0-5) /HPF Ur Epithelial Cells (None Seen) /HPF Urine Bacteria (None Seen) /HPF Urine Culture Reflexed (NO) Influenza Type A Ag (NEGATIVE) Influenza Type B Ag (NEGATIVE) RSV (PCR) (NEGATIVE) SARS-CoV-2 (PCR) (NEGATIVE) 03/29/25 03/29/25 03/29/25 Range/Units 20:38 20:40 23:22 WBC (3.98-10.04) x10^3/uL RBC (3.93-5.22) x10^6/uL Hgb (11.2-15.7) g/dL Hct (34.1-44.9) % MCV (79.4-94.8) fL MCH (25.6-32.2) pg MCHC (32.2-35.5) g/dL RDW (11.7-14.4) % Plt Count (182-369) x10^3/uL MPV (9.4-12.3) fL Gran % (34.0-71.1) % Immature Gran % (Auto) (0.001-0.429) % Nucleat RBC Rel Count (0.00-0.2) % Eos # (Auto) (0.04-0.36) x10^3/uL Immature Gran # (Auto) (0.001-0.031) x10^3u/L Absolute Lymphs (auto) (1.18-3.74) x10^3/uL Absolute Monos (auto) (0.24-0.86) x10^3/uL Absolute Nucleated RBC (0.00-0.012) x10^3u/L Lymphocytes % (19.3-51.7) % Monocytes % (4.7-12.5) % Eosinophils % (0.7-5.8) % Basophils % (0.1-1.2) % Absolute Granulocytes (1.56-6.13) x10^3/uL Basophils # (0.01-0.08) x10^3/uL PT (9.4-12.5) SECONDS INR (0.8-3.0) APTT (25.1-36.5) SECONDS D-Dimer (0.0-0.50) mg/L Sodium (135-145) mmol/L Potassium (3.5-5.1) mmol/L Chloride (98-107) mmol/L Carbon Dioxide (22-30) mmol/L Anion Gap (5-15) MEQ/L BUN (7-17) mg/dL Creatinine (0.52-1.04) mg/dL Estimated GFR ML/MIN Glucose (74-106) mg/dL Lactic Acid 0.9 (0.4-2.0) Calcium (8.4-10.2) mg/dL Magnesium (1.6-2.3) mg/dL Total Bilirubin (0.2-1.3) mg/dL AST (14-36) U/L ALT (0-35) U/L Alkaline Phosphatase (38-126) U/L Troponin I (0.000-0.033) ng/mL NT-Pro-B Natriuret Pep (<300) pg/mL Serum Total Protein (6.3-8.2) g/dL Albumin (3.5-5.0) g/dL Amylase (30-110) U/L Lipase (23-300) U/L Free T4 (0.78-2.19) ng/dL Urine Color Yellow (Yellow) Urine Appearance Clear (Clear) Urine pH 6.5 (4.6-8.0) Ur Specific [place] <=1.005 (1.005-1.030) Urine Protein Negative (Negative) Urine Glucose (UA) Negative (Negative) mg/dL Urine Ketones Negative (Negative) Urine Blood Negative (Negative) Urine Nitrite Negative (Negative) Urine Bilirubin Negative (Negative) Urine Urobilinogen 0.2 (0.2) mg/dL Ur Leukocyte Esterase Negative (Negative) U Hyaline Cast (Auto) NONE SEEN (0-2) /LPF Urine Microscopic RBC 0-2 (0-5) /HPF Urine Microscopic WBC 0-2 (0-5) /HPF Ur Epithelial Cells None Seen (None Seen) /HPF Urine Bacteria None Seen (None Seen) /HPF Urine Culture Reflexed NO (NO) Influenza Type A Ag NEGATIVE (NEGATIVE) Influenza Type B Ag NEGATIVE (NEGATIVE) RSV (PCR) NEGATIVE (NEGATIVE) SARS-CoV-2 (PCR) NEGATIVE (NEGATIVE) 03/30/25 03/30/25 03/30/25 Range/Units 01:00 03:16 03:16 WBC 4.4 (3.98-10.04) x10^3/uL RBC 3.61 L (3.93-5.22) x10^6/uL Hgb 11.3 (11.2-15.7) g/dL Hct 34.0 L (34.1-44.9) % MCV 94.2 (79.4-94.8) fL MCH 31.3 (25.6-32.2) pg MCHC 33.2 (32.2-35.5) g/dL RDW 11.9 (11.7-14.4) % Plt Count 165 L (182-369) x10^3/uL MPV 10.5 (9.4-12.3) fL Gran % (34.0-71.1) % Immature Gran % (Auto) (0.001-0.429) % Nucleat RBC Rel Count (0.00-0.2) % Eos # (Auto) (0.04-0.36) x10^3/uL Immature Gran # (Auto) (0.001-0.031) x10^3u/L Absolute Lymphs (auto) (1.18-3.74) x10^3/uL Absolute Monos (auto) (0.24-0.86) x10^3/uL Absolute Nucleated RBC (0.00-0.012) x10^3u/L Lymphocytes % (19.3-51.7) % Monocytes % (4.7-12.5) % Eosinophils % (0.7-5.8) % Basophils % (0.1-1.2) % Absolute Granulocytes (1.56-6.13) x10^3/uL Basophils # (0.01-0.08) x10^3/uL PT (9.4-12.5) SECONDS INR (0.8-3.0) APTT (25.1-36.5) SECONDS D-Dimer (0.0-0.50) mg/L Sodium (135-145) mmol/L Potassium (3.5-5.1) mmol/L Chloride (98-107) mmol/L Carbon Dioxide (22-30) mmol/L Anion Gap (5-15) MEQ/L BUN (7-17) mg/dL Creatinine (0.52-1.04) mg/dL Estimated GFR ML/MIN Glucose (74-106) mg/dL Lactic Acid (0.4-2.0) Calcium (8.4-10.2) mg/dL Magnesium (1.6-2.3) mg/dL Total Bilirubin (0.2-1.3) mg/dL AST (14-36) U/L ALT (0-35) U/L Alkaline Phosphatase (38-126) U/L Troponin I < 0.012 < 0.012 (0.000-0.033) ng/mL NT-Pro-B Natriuret Pep (<300) pg/mL Serum Total Protein (6.3-8.2) g/dL Albumin (3.5-5.0) g/dL Amylase (30-110) U/L Lipase (23-300) U/L Free T4 (0.78-2.19) ng/dL Urine Color (Yellow) Urine Appearance (Clear) Urine pH (4.6-8.0) Ur Specific [place] (1.005-1.030) Urine Protein (Negative) Urine Glucose (UA) (Negative) mg/dL Urine Ketones (Negative) Urine Blood (Negative) Urine Nitrite (Negative) Urine Bilirubin (Negative) Urine Urobilinogen (0.2) mg/dL Ur Leukocyte Esterase (Negative) U Hyaline Cast (Auto) (0-2) /LPF Urine Microscopic RBC (0-5) /HPF Urine Microscopic WBC (0-5) /HPF Ur Epithelial Cells (None Seen) /HPF Urine Bacteria (None Seen) /HPF Urine Culture Reflexed (NO) Influenza Type A Ag (NEGATIVE) Influenza Type B Ag (NEGATIVE) RSV (PCR) (NEGATIVE) SARS-CoV-2 (PCR) (NEGATIVE) 03/30/25 03/30/25 03/30/25 Range/Units 03:16 03:16 03:16 WBC (3.98-10.04) x10^3/uL RBC (3.93-5.22) x10^6/uL Hgb (11.2-15.7) g/dL Hct (34.1-44.9) % MCV (79.4-94.8) fL MCH (25.6-32.2) pg MCHC (32.2-35.5) g/dL RDW (11.7-14.4) % Plt Count (182-369) x10^3/uL MPV (9.4-12.3) fL Gran % (34.0-71.1) % Immature Gran % (Auto) (0.001-0.429) % Nucleat RBC Rel Count (0.00-0.2) % Eos # (Auto) (0.04-0.36) x10^3/uL Immature Gran # (Auto) (0.001-0.031) x10^3u/L Absolute Lymphs (auto) (1.18-3.74) x10^3/uL Absolute Monos (auto) (0.24-0.86) x10^3/uL Absolute Nucleated RBC (0.00-0.012) x10^3u/L Lymphocytes % (19.3-51.7) % Monocytes % (4.7-12.5) % Eosinophils % (0.7-5.8) % Basophils % (0.1-1.2) % Absolute Granulocytes (1.56-6.13) x10^3/uL Basophils # (0.01-0.08) x10^3/uL PT 11.6 (9.4-12.5) SECONDS INR 1.04 (0.8-3.0) APTT 28.9 (25.1-36.5) SECONDS D-Dimer (0.0-0.50) mg/L Sodium 136 (135-145) mmol/L Potassium 4.1 (3.5-5.1) mmol/L Chloride 109 H (98-107) mmol/L Carbon Dioxide 21 L (22-30) mmol/L Anion Gap 10.0 (5-15) MEQ/L BUN 11 (7-17) mg/dL Creatinine 0.69 (0.52-1.04) mg/dL Estimated GFR 96.3 ML/MIN Glucose 103 (74-106) mg/dL Lactic Acid (0.4-2.0) Calcium 8.2 L (8.4-10.2) mg/dL Magnesium 2.0 (1.6-2.3) mg/dL Total Bilirubin 0.20 (0.2-1.3) mg/dL AST 21 (14-36) U/L ALT 23 (0-35) U/L Alkaline Phosphatase 96 (38-126) U/L Troponin I (0.000-0.033) ng/mL NT-Pro-B Natriuret Pep (<300) pg/mL Serum Total Protein 5.9 L (6.3-8.2) g/dL Albumin 3.7 (3.5-5.0) g/dL Amylase (30-110) U/L Lipase (23-300) U/L Free T4 (0.78-2.19) ng/dL Urine Color (Yellow) Urine Appearance (Clear) Urine pH (4.6-8.0) Ur Specific [place] (1.005-1.030) Urine Protein (Negative) Urine Glucose (UA) (Negative) mg/dL Urine Ketones (Negative) Urine Blood (Negative) Urine Nitrite (Negative) Urine Bilirubin (Negative) Urine Urobilinogen (0.2) mg/dL Ur Leukocyte Esterase (Negative) U Hyaline Cast (Auto) (0-2) /LPF Urine Microscopic RBC (0-5) /HPF Urine Microscopic WBC (0-5) /HPF Ur Epithelial Cells (None Seen) /HPF Urine Bacteria (None Seen) /HPF Urine Culture Reflexed (NO) Influenza Type A Ag (NEGATIVE) Influenza Type B Ag (NEGATIVE) RSV (PCR) (NEGATIVE) SARS-CoV-2 (PCR) (NEGATIVE) 03/30/25 Range/Units 07:15 WBC (3.98-10.04) x10^3/uL RBC (3.93-5.22) x10^6/uL Hgb (11.2-15.7) g/dL Hct (34.1-44.9) % MCV (79.4-94.8) fL MCH (25.6-32.2) pg MCHC (32.2-35.5) g/dL RDW (11.7-14.4) % Plt Count (182-369) x10^3/uL MPV (9.4-12.3) fL Gran % (34.0-71.1) % Immature Gran % (Auto) (0.001-0.429) % Nucleat RBC Rel Count (0.00-0.2) % Eos # (Auto) (0.04-0.36) x10^3/uL Immature Gran # (Auto) (0.001-0.031) x10^3u/L Absolute Lymphs (auto) (1.18-3.74) x10^3/uL Absolute Monos (auto) (0.24-0.86) x10^3/uL Absolute Nucleated RBC (0.00-0.012) x10^3u/L Lymphocytes % (19.3-51.7) % Monocytes % (4.7-12.5) % Eosinophils % (0.7-5.8) % Basophils % (0.1-1.2) % Absolute Granulocytes (1.56-6.13) x10^3/uL Basophils # (0.01-0.08) x10^3/uL PT (9.4-12.5) SECONDS INR (0.8-3.0) APTT 119.2 H* (25.1-36.5) SECONDS D-Dimer (0.0-0.50) mg/L Sodium (135-145) mmol/L Potassium (3.5-5.1) mmol/L Chloride (98-107) mmol/L Carbon Dioxide (22-30) mmol/L Anion Gap (5-15) MEQ/L BUN (7-17) mg/dL Creatinine (0.52-1.04) mg/dL Estimated GFR ML/MIN Glucose (74-106) mg/dL Lactic Acid (0.4-2.0) Calcium (8.4-10.2) mg/dL Magnesium (1.6-2.3) mg/dL Total Bilirubin (0.2-1.3) mg/dL AST (14-36) U/L ALT (0-35) U/L Alkaline Phosphatase (38-126) U/L Troponin I (0.000-0.033) ng/mL NT-Pro-B Natriuret Pep (<300) pg/mL Serum Total Protein (6.3-8.2) g/dL Albumin (3.5-5.0) g/dL Amylase (30-110) U/L Lipase (23-300) U/L Free T4 (0.78-2.19) ng/dL Urine Color (Yellow) Urine Appearance (Clear) Urine pH (4.6-8.0) Ur Specific [place] (1.005-1.030) Urine Protein (Negative) Urine Glucose (UA) (Negative) mg/dL Urine Ketones (Negative) Urine Blood (Negative) Urine Nitrite (Negative) Urine Bilirubin (Negative) Urine Urobilinogen (0.2) mg/dL Ur Leukocyte Esterase (Negative) U Hyaline Cast (Auto) (0-2) /LPF Urine Microscopic RBC (0-5) /HPF Urine Microscopic WBC (0-5) /HPF Ur Epithelial Cells (None Seen) /HPF Urine Bacteria (None Seen) /HPF Urine Culture Reflexed (NO) Influenza Type A Ag (NEGATIVE) Influenza Type B Ag (NEGATIVE) RSV (PCR) (NEGATIVE) SARS-CoV-2 (PCR) (NEGATIVE) - Radiology Exams Ordered Rad Exams-Entire Visit: Radiology Procedures Category Date Time Status CHEST 1 VIEW (PORTABLE) Stat Exams 03/29/25 20:24 Completed CHEST WITHOUT CONTRAST [CT] Stat Exams 03/29/25 22:03 Completed - Procedures and Test Procedures and Tests throughout Hospitalization: Therapy Orders & Screens 03/30/25 03:06 Respiratory Therapy Assessment ONCE Comment: Diagnosis: chest pain Discharge Exam General Appearance: no apparent distress Neurologic Exam: alert, oriented x 3, cooperative Eye Exam: PERRL Ears, Nose, Throat Exam: normal ENT inspection Neck Exam: normal inspection Respiratory Exam: normal breath sounds, lungs clear Cardiovascular Exam: irregular Gastrointestinal/Abdomen Exam: soft, normal bowel sounds Pelvic Exam: deferred Rectal Exam: deferred Back Exam: normal inspection Extremity Exam: normal inspection Skin Exam: normal color Final Diagnosis/Problem List - Final Discharge Diagnosis/Problem (1) Unstable angina Current Visit: Yes Status: Acute Assessment & Plan: ECG: ST depression in lateral leads, consistent with subendocardial ischemia. Troponins: Negative 2. CXR: No pneumothorax or consolidation; mild subpleural congestion. CT Chest: No acute abnormality; granulomas and old lingular scarring. Continue aspirin and clopidogrel. Initiate heparin infusion IV fluids for BP support as needed. Trend troponins q6h 3; continuous telemetry. Transfer to tertiary center for possible catheterization and cardiology evaluation. (2) Hypotension Current Visit: Yes Status: Acute Assessment & Plan: Secondary to nitrate therapy Resolved after IV fluid bolus and discontinuation of nitroglycerin drip. Maintain MAP > 65; resume nitrates cautiously if chest pain recurs. Code(s): I95.9 - HYPOTENSION, UNSPECIFIED (3) HTN (hypertension) Current Visit: Yes Status: Acute Assessment & Plan: On metoprolol cardizem and lisinopril; hold for SBP < 90. Continue home antihypertensive regimen once hemodynamics stabilize. Code(s): I10 - ESSENTIAL (PRIMARY) HYPERTENSION (4) HLD (hyperlipidemia) Current Visit: Yes Status: Acute Assessment & Plan: Statins previously discontinued due to intolerance; lipid management to be revisited with cardiology. Code(s): E78.5 - HYPERLIPIDEMIA, UNSPECIFIED (5) Atrial fibrillation with rapid ventricular response Current Visit: Yes Status: Acute Assessment & Plan: Brief episode of RVR during admission, rate improved after esmolol. EKG: Sinus tachycardia post-treatment, 1st degree AV block, ischemic ST-T changes. Continue rate control with metoprolol and diltiazem. Maintain potassium > 4.0 and magnesium > 2.0. Transition from Eliquis to IV heparin during ACS workup. Telemetry monitoring for recurrence. Cardiology consult at receiving facility. Code(s): I48.91 - UNSPECIFIED ATRIAL FIBRILLATION (6) Hernandes esophagus Current Visit: Yes Status: Acute Assessment & Plan: Continue pantoprazole and sucralfate. No evidence of active GI bleed or dysphagia during stay. Code(s): K22.70 - HERNANDES'S ESOPHAGUS WITHOUT DYSPLASIA (7) Anxiety Current Visit: No Status: Chronic Assessment & Plan: Continue paroxetine and alprazolam as needed. Monitor for stress-related exacerbation given acute cardiac event. Code(s): F41.9 - ANXIETY DISORDER, UNSPECIFIED (8) Hypothyroid Current Visit: No Status: Chronic Assessment & Plan: Continue home levothyroxine 75 mcg daily; most recent TSH within goal range. Code(s): E03.9 - HYPOTHYROIDISM, UNSPECIFIED - Discharge Discharge Date: 03/30/25 Disposition: Home, Self-Care Condition: Stable Prescriptions: New Diltiazem HCl 30 mg [Cardizem 30 MG] 30 mg PO QID tablet Metoprolol Tartrate 25 mg [Lopressor 25MG Tab] 25 mg PO BID tablet Continue PANTOPRAZOLE 40 mg Tablet [Protonix 40MG Tablet] 40 mg PO HS Paroxetine HCl 20 mg [Paxil 20 MG] 10 mg PO DAILY Sucralfate 1 gm [Carafate 1 GM] 1 g PO DAILY Potassium Chloride 10 meq PO HS ALPRAZolam 0.25 MG [xanAX 0.25 MG] 0.25 mg PO HS Metoprolol Tartrate 25 mg [Lopressor 25MG Tab] 25 mg PO BID 30 Days #60 tablet Clopidogrel Bisulfate [Clopidogrel] 75 mg PO DAILY Levothyroxine Sodium 75 Mcg [Synthroid 75 Mcg] 75 mcg PO DAILY Discontinued Lisinopril 5 mg [Zestril 5 MG] 5 mg PO DAILY Apixaban [Eliquis 2.5 mg Tablet] 5 mg PO BID 30 Days #60 tablet dilTIAZem HCL [Diltiazem 24Hr ER] 120 mg PO DAILY Follow up with: KULDEEP COE MD [Primary Care Provider, [facility]]
[2025-03-30] MEDS ORDERED: NON-FORMULARY ITEM (Diltiazem Hcl [Diltiazem 24hr Er] 120 MG Cap.Sa.24h) PO SCH (10:00)
[2025-03-30] MEDS ORDERED: Klor Con PO SCH (10:00)
[2025-03-30] MEDS ORDERED: Protonix 40MG Tablet PO SCH (10:00)
[2025-03-30] MEDS ORDERED: Carafate 1 GM PO SCH (10:00)
[2025-03-30] MEDS ORDERED: Zestril 5 MG PO SCH (10:00)
[2025-03-30] MEDS ORDERED: Paxil 20 MG PO SCH (10:00)
[2025-03-30] MEDS ORDERED: SYNTHROID 88 MCG PO SCH ×2 (10:00)
[2025-03-30] MEDS ORDERED: Lopressor 25MG Tab PO SCH (10:00)
[2025-03-30] MEDS ORDERED: PLAVIX Tablet PO SCH (10:00)
[2025-03-30] MEDS: Klor Con PO SCH (10:10)
[2025-03-30] MEDS: SYNTHROID 75 MCG PO SCH (10:10)
[2025-03-30] MEDS: Carafate 1 GM PO SCH (10:10)
[2025-03-30] MEDS: Cardizem 30 MG PO SCH (10:10)
[2025-03-30] MEDS: Lopressor 25MG Tab PO SCH (10:10)
[2025-03-30] MEDS: Zestril 5 MG PO SCH (10:11)
[2025-03-30] MEDS: Paxil 20 MG PO SCH (10:11)
[2025-03-30] MEDS: Protonix 40MG Tablet PO SCH (10:11)
[2025-03-30] MEDS: PLAVIX Tablet PO SCH (10:11)
[2025-03-30 10:40] VITALS: BP 133/80
[2025-03-30] MEDS ORDERED: xanAX 0.25 MG PO SCH ×2 (22:00)
== END 2025-03-30 10:30 | disposition home or self-care (01) ==
LOC: ED 20:10 → MED SURG 03-30 01:50 → ICU 03-30 03:02
PROVIDERS: ADMIT Hospitalist; ATTEND Hospitalist
DX: I20.0 Unstable angina (principal); I95.9 Hypotension, unspecified; I10 Essential (primary) hypertension; E78.5 Hyperlipidemia, unspecified; I48.91 Unspecified atrial fibrillation; F41.9 Anxiety disorder, unspecified; E03.9 Hypothyroidism, unspecified; K22.719 Barrett's esophagus with dysplasia, unspecified; Z79.899 Other long term (current) drug therapy; Z79.01 Long term (current) use of anticoagulants